=== PATIENT | female | born 1960 | race African-American/Black ===

== ENCOUNTER 2018-07-05 15:47 | Emergency (ER) | payer SELFPAY ==
[~2018-07-05] VITALS: Ht 157.5 cm; Wt 65.8 kg
[2018-07-05] MEDS ORDERED: VANCOMYCIN PER PHARMACY MC ONE (16:15)
--- NOTE | 2018-07-05 16:24 | PHYS DOC ---
Past Medical History Past Medical History: COPD, CVA Past Surgical History: Hysterectomy Additional Information: 6 cigerettes reported on avg per day. Alcohol Use: None Drug Use: None Adult General Chief Complaint Chief Complaint: SHORTNESS OF BREATH HPI HPI Patient is a 57 year old female with a history of smoking, CVA with left sided weakness, who presents today complaining of cough, shortness of breath, body aches, symptoms began yesterday. Patient is also complaining of subjective fevers. She states she believes she has pneumonia though she smells of urine PCP-none Review of Systems Review of Systems Constitutional: Denies fever or chills [] Eyes: Denies change in visual acuity, redness, or eye pain [] HENT: Denies nasal congestion or sore throat [] Respiratory: Reports cough and shortness of breath [] Cardiovascular: No additional information not addressed in HPI [] GI: Denies abdominal pain, nausea, vomiting, bloody stools or diarrhea [] : Denies dysuria or hematuria [] Musculoskeletal: Denies back pain or joint pain [] Integument: Denies rash or skin lesions [] Neurologic: Denies headache, focal weakness or sensory changes [] All other systems were reviewed and found to be within normal limits, except as documented in this note. Current Medications Current Medications Current Medications Medications (Trade) Dose Ordered Sig/Razia Start Time Stop Time Status Last Admin Dose Admin Piperacillin Sod/ Tazobactam Sod 4.5 gm/Sodium Chloride 100 ml @ 200 mls/hr 1X ONCE 07/05/18 16:30 07/05/18 16:59 DC 07/05/18 16:35 200 MLS/HR Sodium Chloride 1,000 ml @ 1,500 mls/hr Q40M 07/05/18 16:11 07/05/18 17:10 DC 07/05/18 16:28 1,500 MLS/HR Vancomycin HCl (Vanco Per Pharmacy) 1 each 1X ONCE 07/05/18 16:15 07/05/18 16:16 UNV Vancomycin HCl 1.5 gm/Sodium Chloride 500 ml @ 250 mls/hr 1X ONCE 07/05/18 16:30 07/05/18 18:29 DC 07/05/18 17:33 250 MLS/HR Allergies Allergies Allergies Coded Allergies Type Severity Reaction Last Updated Verified No Known Drug Allergies 07/05/18 No Physical Exam Physical Exam Constitutional: Well developed, well nourished, no acute distress, non-toxic appearance. [] HENT: Normocephalic, atraumatic, bilateral external ears normal, oropharynx moist, no oral exudates, nose normal. [] Eyes: PERRLA, EOMI, conjunctiva normal, no discharge. [] Neck: Normal range of motion, no tenderness, supple, no stridor. [] Cardiovascular:Heart rate regular rhythm, no murmur [] Lungs & Thorax: Bilateral breath sounds clear to auscultation [] Abdomen: Bowel sounds normal, soft, no tenderness, no masses, no pulsatile masses. [] Patient smells of urine. Skin: Warm, dry, no erythema, no rash. [] Back: No tenderness, no CVA tenderness. [] Extremities: No tenderness, no cyanosis, no clubbing, no edema. Left sided paralysis noted. Neurologic: Alert and oriented X 3, normal motor function, normal sensory function, no focal deficits noted. [] Psychologic: Affect normal, judgement normal, mood normal. [] Current Patient Data Vital Signs Vital Signs Date Time Temp Pulse Resp B/P (MAP) Pulse Ox O2 Delivery O2 Flow Rate FiO2 07/05/18 15:50 100.1 86 24 135/69 (91) 99 Room Air 100.1 Lab Values Laboratory Tests Test 07/05/18 16:03 07/05/18 16:30 07/05/18 16:45 White Blood Count 8.5 x10^3/uL (4.0-11.0) Red Blood Count 4.56 x10^6/uL (3.50-5.40) Hemoglobin 12.7 g/dL (12.0-15.5) Hematocrit 39.4 % (36.0-47.0) Mean Corpuscular Volume 86 fL (79-100) Mean Corpuscular Hemoglobin 28 pg (25-35) Mean Corpuscular Hemoglobin Concent 32 g/dL (31-37) Red Cell Distribution Width 13.7 % (11.5-14.5) Platelet Count 258 x10^3/uL (140-400) Neutrophils (%) (Auto) 71 % (31-73) Lymphocytes (%) (Auto) 17 % (24-48) L Monocytes (%) (Auto) 10 % (0-9) H Eosinophils (%) (Auto) 1 % (0-3) Basophils (%) (Auto) 1 % (0-3) Neutrophils # (Auto) 6.1 x10^3uL (1.8-7.7) Lymphocytes # (Auto) 1.4 x10^3/uL (1.0-4.8) Monocytes # (Auto) 0.8 x10^3/uL (0.0-1.1) Eosinophils # (Auto) 0.0 x10^3/uL (0.0-0.7) Basophils # (Auto) 0.1 x10^3/uL (0.0-0.2) Prothrombin Time 13.5 SEC (11.7-14.0) Prothrombin Time INR 1.1 (0.8-1.1) PTT 29 SEC (24-38) Sodium Level 140 mmol/L (136-145) Potassium Level 4.1 mmol/L (3.5-5.1) Chloride Level 104 mmol/L (98-107) Carbon Dioxide Level 26 mmol/L (21-32) Anion Gap 10 (6-14) Blood Urea Nitrogen 7 mg/dL (7-20) Creatinine 0.7 mg/dL (0.6-1.0) Estimated GFR (Cockcroft-Gault) 103.6 BUN/Creatinine Ratio 10 (6-20) Glucose Level 88 mg/dL (70-99) Lactic Acid Level 1.1 mmol/L (0.4-2.0) Calcium Level 9.4 mg/dL (8.5-10.1) Total Bilirubin 0.5 mg/dL (0.2-1.0) Aspartate Amino Transferase (AST) 18 U/L (15-37) Alanine Aminotransferase (ALT) 11 U/L (14-59) L Alkaline Phosphatase 53 U/L (46-116) Creatine Kinase 63 U/L (26-192) Creatine Kinase MB (Mass) < 0.5 ng/mL (0.0-3.6) Creatine Kinase MB Relative Index % (0-4) Troponin I Quantitative < 0.017 ng/mL (0.000-0.055) Total Protein 7.6 g/dL (6.4-8.2) Albumin 3.4 g/dL (3.4-5.0) Albumin/Globulin Ratio 0.8 (1.0-1.7) L Procalcitonin < 0.10 ng/mL (0.00-0.10) Urine Collection Type Void Urine Color Yellow Urine Clarity Turbid Urine pH 7.0 Urine Specific [place] 1.020 Urine Protein 100 mg/dL (NEG-TRACE) Urine Glucose (UA) Negative mg/dL (NEG) Urine Ketones (Stick) Negative mg/dL (NEG) Urine Blood Moderate (NEG) Urine Nitrite Positive (NEG) Urine Bilirubin Negative (NEG) Urine Urobilinogen Dipstick 2.0 mg/dL (0.2 mg/dL) Urine Leukocyte Esterase Large (NEG) Urine RBC 3-5 /HPF (0-2) Urine WBC >40 /HPF (0-4) Urine Squamous Epithelial Cells Occ /LPF Urine Bacteria Many /HPF (0-FEW) Urine Mucus Slight /LPF Influenza Type A Antigen Negative (NEGATIVE) Influenza Type B Antigen Negative (NEGATIVE) Laboratory Tests 07/05/18 16:03 Laboratory Tests 07/05/18 16:03 EKG EKG Interpreted by Dr. Smart sinus rhythm heart rate 87 no STEMI[] Radiology/Procedures Radiology/Procedures []PROCEDURE: CHEST PA & LATERAL CHEST PA LATERAL History: History of stroke, cough and fever Comparison: January 30, 2012 Findings: 2 views of the chest are submitted. There is no new infiltrate, pleural fluid, pneumothorax. There is atherosclerotic calcification near aortic arch. Heart size is stable, within normal limits. Impression: 1. There is no radiographic evidence of acute cardiopulmonary disease. Electronically signed by: Nirali Chavez MD (07/05/2018 6:29 PM) [facility] DICTATED and SIGNED BY: NIRALI CHAVEZ MD DATE: 07/05/181828 Course & Med Decision Making Course & Med Decision Making Pertinent Labs and Imaging studies reviewed. (See chart for details) This is a 57-year-old female patient with history of smoking presenting today with cough, shortness of breath on exertion, subjective fevers, symptoms since yesterday. Temp 100.1 with a heart rate in the 80s. CBC with normal WBC, CMP with no acute findings, chest x-ray is negative, urine analysis is noted for UTI. Lactic is normal. Patient was given vancomycin and Zosyn on arrival to the ED because she was started on the sepsis protocol, we discussed discharge versus pain, she is verbalizing interest in being discharge. She has good follow -up with her PCP. Will be discharged with cephalexin. Follow-up with PCP in the course of next week. Discussed smoking cessation. Akila Disclaimer Akila Disclaimer This electronic medical record was generated, in whole or in part, using a voice recognition dictation system. Departure Departure Impression: Primary Impression: Urinary tract infection Additional Impressions: Fever Bronchitis Smoking addiction Disposition: HOME, SELF-CARE Condition: STABLE Referrals: ROSHNI NERI MD (PCP) follow up next week or by the end of this week Patient Instructions: Fever, Adult, [id number], Urinary Tract Infection Additional Instructions: You have urinary tract infection, take the prescribed antibiotics until completed. Take Tylenol or Motrin for pain or fever. Consider smoking cessation. Follow-up with primary care doctor in the course of next week. Scripts Benzonatate (TESSALON PERLE) 100 Mg Capsule 1 CAP PO TID, #30 CAP Prov: SHAHRZAD ZHAO APRN 07/05/18 Albuterol Sulfate (VENTOLIN HFA INHALER) 18 Gm Hfa.aer.ad 2 PUFF INH Q4HRS for FOR ASTHMA, #1 INHALER 0 Refills Prov: SHAHRZAD ZHAO APRN 07/05/18 Cephalexin (CEPHALEXIN) 500 Mg Tablet 1 TAB PO BID, #14 TAB Prov: SHAHRZAD ZHAO APRN 07/05/18 Problem Qualifiers Primary Impression: Urinary tract infection Urinary tract infection type: site unspecified Hematuria presence: without hematuria Qualified Codes: N39.0 - Urinary tract infection, site not specified Additional Impressions: Fever Fever type: unspecified Qualified Codes: R50.9 - Fever, unspecified SHAHRZAD ZHAO APRN Jul 05, 2018 16:24
[2018-07-05 16:27] LABS: BASO # 0.1 x10^3/uL (0.0-0.2); BASO % 1 % (0-3); EOS % 1 % (0-3); HEMATOCRIT 39.4 % (36.0-47.0); HEMOGLOBIN 12.7 g/dL (12.0-15.5); LYMPH # 1.4 x10^3/uL (1.0-4.8); LYMPH % 17 % (24-48); MEAN CORPUSCULAR HEMOGLOBIN 28 pg (25-35); MEAN CORPUSCULAR HGB CONC 32 g/dL (31-37); MEAN CORPUSCULAR VOLUME 86 fL (79-100); MONO # 0.8 x10^3/uL (0.0-1.1); MONO % 10 % (0-9); NEUT # 6.1 x10^3uL (1.8-7.7); NEUT % 71 % (31-73); PLATELET COUNT 258 x10^3/uL (140-400); RED BLOOD COUNT 4.56 x10^6/uL (3.50-5.40); RED CELL DISTRIBUTION WIDTH 13.7 % (11.5-14.5); WHITE BLOOD COUNT 8.5 x10^3/uL (4.0-11.0)
[2018-07-05] MEDS: IV NORMAL SALINE 1000ML BAG 1,000 ML IV SCH (16:28)
[2018-07-05] MEDS: PIPERACILLIN/TAZOBACTAM 4.5 GM in IV NORMAL SALINE 100ML 100 ML IV ONE (16:35)
[2018-07-05 16:37] LABS: PROTHROMBIN TIME PATIENT 13.5 SEC (11.7-14.0)
[2018-07-05 16:51] LABS: CALCIUM 9.4 mg/dL (8.5-10.1); CREATININE 0.7 mg/dL (0.6-1.0); GFR 103.6; POTASSIUM 4.1 mmol/L (3.5-5.1)
[2018-07-05 16:54] LABS: BILIRUBIN,URINE NEGATIVE (NEG); CLARITY,URINE TURBID; COLOR,URINE YELLOW; NITRITE,URINE POSITIVE (NEG); PROTEIN,URINE 100 mg/dL (NEG-TRACE)
[2018-07-05 17:01] LABS: BACTERIA,URINE MANY /HPF (0-FEW); SQUAMOUS EPITHELIAL CELL,UR OCC /LPF; WBC,URINE >40 /HPF (0-4)
[2018-07-05 17:02] LABS: ALBUMIN 3.4 g/dL (3.4-5.0); ALBUMIN/GLOBULIN RATIO 0.8 (1.0-1.7); TOTAL BILIRUBIN 0.5 mg/dL (0.2-1.0); TOTAL PROTEIN 7.6 g/dL (6.4-8.2)
[2018-07-05 17:06] LABS: CREATINE KINASE 63 U/L (26-192)
[2018-07-05 17:18] LABS: INFLUENZA A PATIENT NEGATIVE (NEGATIVE); INFLUENZA B PATIENT NEGATIVE (NEGATIVE)
[2018-07-05] MEDS: VANCOMYCIN 1.5 GM in IV NORMAL SALINE 500ML BAG 500 ML IV ONE (17:33)
--- NOTE | 2018-07-05 18:32 | RAD ---
CHEST PA LATERAL History: History of stroke, cough and fever Comparison: January 30, 2012 Findings: 2 views of the chest are submitted. There is no new infiltrate, pleural fluid, pneumothorax. There is atherosclerotic calcification near aortic arch. Heart size is stable, within normal limits. Impression: 1. There is no radiographic evidence of acute cardiopulmonary disease. Electronically signed by: Gerson Arizmendi MD (07/05/2018 6:29 PM) [facility]
[2018-07-05] MEDS ORDERED: BENZ100C PO (18:44)
[2018-07-05] MEDS ORDERED: CEPH500T PO (18:44)
[2018-07-05] MEDS ORDERED: VENTOLIN HFA18 GM INH (18:44)
[2018-07-05 18:58] VITALS: BP 119/72
--- NOTE | 2018-07-06 06:05 | EKG ---
[facility] [address] [place] [address] Test Date: 2018-07-05 Test Time: 16:01:21 Pat Name: ALEJANDRA SANDHU Department: Room: Gender: F Character Artist: : 1960 Requested By: SHAHRZAD ZHAO Order Number: [id number] Reading MD: Rafa Tracy MD Measurements Intervals [place] Rate: 87 P: 90 PA: 158 QRS: 62 QRSD: 64 T: 64 QT: 326 QTc: 393 Interpretive Statements SINUS RHYTHM Electronically Signed On 07-08-2018 16:13:47 CDT by Rafa Tracy MD
== END 2018-07-05 19:50 | disposition home or self-care (01) ==
LOC: ER 15:47
DX: J44.9 Chronic obstructive pulmonary disease, unspecified (principal); N39.0 Urinary tract infection, site not specified; F17.210 Nicotine dependence, cigarettes, uncomplicated; M79.18 Myalgia, other site; R50.9 Fever, unspecified; Z86.73 Personal history of transient ischemic attack (TIA), and cerebral infarction without residual deficits; G83.9 Paralytic syndrome, unspecified
CPT/HCPCS: 36415; 71046; 80053; 81001; 82553; 83605; 84145; 84484; 85025; 85610; 85730; 87040; 87086; 87804; 93005; 96365; 96366; 96367; 99284; J2543; J3370; J7030; J7040; 87186

== ENCOUNTER 2021-01-06 01:03 | Inpatient (IN) | payer SELFPAY ==
[~2021-01-06] VITALS: Ht 157.5 cm; Wt 46.7 kg
[~2021-01-06 01:03] MED LIST: BENZ100C PO; CEPH500T PO; VENTOLIN HFA18 GM INH
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
[2021-01-06] MEDS ORDERED: KETOROLAC 60 MG/2 ML VIAL. IM ONE (01:45)
[2021-01-06 01:59] LABS: BASO # 0.1 x10^3/uL (0.0-0.2); BASO % 1 % (0-3); EOS # 0.3 x10^3/uL (0.0-0.7); EOS % 5 % (0-3); HEMATOCRIT 36.5 % (36.0-47.0); LYMPH # 2.4 x10^3/uL (1.0-4.8); LYMPH % 36 % (24-48); MEAN CORPUSCULAR HEMOGLOBIN 29 pg (25-35); MEAN CORPUSCULAR HGB CONC 33 g/dL (31-37); MEAN CORPUSCULAR VOLUME 87 fL (79-100); MONO # 0.4 x10^3/uL (0.0-1.1); MONO % 6 % (0-9); NEUT # 3.4 x10^3/uL (1.8-7.7); NEUT % 52 % (31-73); PLATELET COUNT 223 x10^3/uL (140-400); RED BLOOD COUNT 4.19 x10^6/uL (3.50-5.40); WHITE BLOOD COUNT 6.6 x10^3/uL (4.0-11.0)
[2021-01-06 02:08] LABS: BILIRUBIN,URINE NEGATIVE (NEG); CLARITY,URINE CLEAR; COLOR,URINE YELLOW; NITRITE,URINE NEGATIVE (NEG); PH,URINE 6.5 (<5.0-8.0); PROTEIN,URINE NEGATIVE (NEG-TRACE)
[2021-01-06 02:10] LABS: CREATININE 0.8 mg/dL (0.6-1.0); GFR 87.9; POTASSIUM 3.5 mmol/L (3.5-5.1)
[2021-01-06 02:15] LABS: ALBUMIN 3.8 g/dL (3.4-5.0); ALBUMIN/GLOBULIN RATIO 1.2 (1.0-1.7); TOTAL BILIRUBIN 0.4 mg/dL (0.2-1.0); TOTAL PROTEIN 7.1 g/dL (6.4-8.2)
[2021-01-06 02:16] LABS: BACTERIA,URINE 0 /HPF (0-FEW)
[2021-01-06 02:21] LABS: AMPHETAMINE/METHAMPHETAMINE NEG (NEG); BARBITURATES NEG (NEG); BENZODIAZEPINES NEG (NEG); CANNABINOIDS NEG (NEG); COCAINE POS (NEG); METHADONE NEG (NEG); OPIATES NEG (NEG); PHENCYCLIDINE NEG (NEG)
[2021-01-06] MEDS ORDERED: CEPHALEXIN 250 MG CAPSULE. PO STA (06:10)
[2021-01-06] MEDS ORDERED: CEPH500T PO (06:12)
[2021-01-06] MEDS ORDERED: HALOPERIDOL LACTATE 5 MG/ML VIAL. ONE ×2 (06:24→08:35)
[2021-01-06] MEDS ORDERED: KETAMINE HCL 500 MG/10 ML VIAL. ONE (06:26)
[2021-01-06] MEDS ORDERED: KETAMINE HCL IN NACL, ISO-OSM 50 MG/5 ML SYRINGE IM ONE (06:45)
[2021-01-06] MEDS ORDERED: HALOPERIDOL LACTATE 5 MG/ML VIAL. IM ONE (08:45)
[2021-01-06] MEDS ORDERED: ACETAMINOPHEN 325 MG TABLET. PO PRN (10:45)
[2021-01-06] MEDS ORDERED: ONDANSETRON PF 4 MG/2 ML VIAL. IVP PRN (10:45)
[2021-01-06] MEDS ORDERED: CALCIUM CARBONATE 500 MG TAB.CHEW PO PRN (10:45)
[2021-01-06] MEDS ORDERED: ELECTROLYTE (NON-ICU) PROTOCOL. MC PRN (10:45)
[2021-01-06] MEDS ORDERED: CEPHALEXIN 250 MG CAPSULE. PO SCH (14:00)
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
[2021-01-06 19:00] VITALS: BP 145/84
[2021-01-06] MEDS: ZOLPIDEM 5 MG TABLET. PO PRN (19:38)
[2021-01-06] MEDS: CEPHALEXIN 250 MG CAPSULE. PO SCH (19:39)
[2021-01-06] MEDS: SENNOSIDES/DOCUSATE 8.6/50MG TABLET. PO SCH (19:39)
[2021-01-06] MEDS: ENOXAPARIN 40 MG/0.4 ML SYRINGE. SQ SCH (19:40)
[2021-01-06 22:54] VITALS: BP 127/66
--- NOTE | 2021-01-07 00:47 | NUR ---
Had difficulty getting info from pt. Pt did wake up when brought to floor but then went back to sleep. Most info gathered from report/chart.
[2021-01-07 03:00] VITALS: BP 145/82
[2021-01-07] MEDS: CEPHALEXIN 250 MG CAPSULE. PO SCH (09:48)
[2021-01-07] MEDS: SENNOSIDES/DOCUSATE 8.6/50MG TABLET. PO SCH ×2 (09:48→20:27)
--- NOTE | 2021-01-07 10:51 | NUR ---
SW following. Discussed with RN, pt from home alone, room air, regular diet, 1:1, Rapid COVID-19 negative. PAT saw pt in ER, SW awaiting update. SW will continue to follow.
[2021-01-07 11:00] VITALS: BP 142/79
[2021-01-07] MEDS: LACTOBACILLUS RHAMNOSUS GG 1 CAPSULE. PO SCH ×2 (13:02→20:27)
--- NOTE | 2021-01-07 13:47 | PDOC ---
[employer] PROGRESS NOTE Date of Service DOS: DATE: 01/07/21 TIME: 13:45 Chief Complaint Chief Complaint Manic behavior, agitation, substance abuse, history of COPD, UTI History of Present Illness History of Present Illness 01/07/2021 Patient seen and examined She is pleasantly confused Mumbling Has one-to-one observer Discussed with RN Chart reviewed Vitals/I&O Vitals/I&O: Vital Signs Date Time Temp Pulse Resp B/P (MAP) Pulse Ox O2 Delivery O2 Flow Rate FiO2 01/07/21 11:00 61 18 142/79 (100) 98 Room Air I & O 01/06/21 01/06/21 01/07/21 15:00 23:00 07:00 Intake Total 120 ml 240 ml Balance 120 ml 240 ml Physical Exam General: Other (Pleasantly confused mumbling various words) Heart: Regular rate Lungs: Clear Abdomen: Normal bowel sounds Extremities: No clubbing Skin: No rashes Assessment and Plan Assessmemt and Plan Problems Medical Problems: (1) Hallucinations Status: Acute (2) Jennifer Status: Acute (3) Urinary tract infection Status: Acute Manic behavior, agitation, substance abuse, history of COPD, UTI Plan As needed antipsychotics One-to-one observation PET team evaluation Home meds DVT prophylaxis Full code Continue antibiotics for UTI Encourage p.o. intake Comment Review of Relevant I have reviewed the following items rosa (where applicable) has been applied. Medications: Current Medications Medications (Trade) Dose Ordered Sig/Razia Route PRN Reason Start Time Stop Time Status Last Admin Dose Admin Senna/Docusate Sodium (Senna Plus) 1 tab BID PO 01/06/21 21:00 01/07/21 09:48 Enoxaparin Sodium (Lovenox 40mg Syringe) 40 mg Q24H SQ 01/06/21 21:00 01/06/21 19:40 Cephalexin HCl (Keflex) 500 mg TID PO 01/06/21 19:00 01/07/21 09:48 Lorazepam (Ativan) 4 mg PRN Q6HRS PRN PO ANXIETY / AGITATION 01/07/21 06:00 01/07/21 13:03 Lactobacillus Rhamnosus (Culturelle) 1 cap BID PO 01/07/21 13:00 01/07/21 13:02 Justifications for Admission Other Justification KAUR MORAN K III DO Jan 07, 2021 13:46
[2021-01-07 15:00] VITALS: BP 140/70
--- NOTE | 2021-01-07 15:00 | NUR ---
1:1 dc'd. pt has been appropriate and cooperative with care this shift.
[2021-01-07] MEDS: HALOPERIDOL LACTATE 5 MG/ML VIAL. IVP PRN (16:51)
[2021-01-07 19:00] VITALS: BP 180/83
[2021-01-07] MEDS: ZOLPIDEM 5 MG TABLET. PO PRN (20:27)
[2021-01-07] MEDS: ENOXAPARIN 40 MG/0.4 ML SYRINGE. SQ SCH (20:28)
[2021-01-07 23:00] VITALS: BP 147/74
[2021-01-08] VITALS (7 sets, daily range): BP systolic 129–182; BP diastolic 55–94
[2021-01-08] MEDS: HALOPERIDOL LACTATE 5 MG/ML VIAL. IVP PRN ×3 (02:06→15:31)
--- NOTE | 2021-01-08 02:08 | NUR ---
Pt confused, restless, taking off gown. Periods of incontinence. Changed Pulled out IV @ start of shift. PRNs for agitation administered as ordered.
[2021-01-08] MEDS: SENNOSIDES/DOCUSATE 8.6/50MG TABLET. PO SCH ×2 (07:43→19:37)
[2021-01-08] MEDS: LACTOBACILLUS RHAMNOSUS GG 1 CAPSULE. PO SCH ×2 (07:43→19:37)
--- NOTE | 2021-01-08 08:47 | PDOC ---
[employer] PROGRESS NOTE Date of Service DOS: DATE: 01/08/21 TIME: 08:46 Chief Complaint Chief Complaint Manic behavior, agitation, substance abuse, history of COPD, UTI History of Present Illness History of Present Illness 01/08/2021 Patient seen and examined She is still pleasantly confused Has mitts on for her safety Discussed with RN Chart reviewed 01/07/2021 Patient seen and examined She is pleasantly confused Mumbling Has one-to-one observer Discussed with RN Chart reviewed Vitals/I&O Vitals/I&O: Vital Signs Date Time Temp Pulse Resp B/P (MAP) Pulse Ox O2 Delivery O2 Flow Rate FiO2 01/08/21 07:00 97.7 55 18 182/94 (123) 99 Room Air 97.7 01/07/21 08:00 2.0 I & O 01/07/21 01/07/21 01/08/21 15:00 23:00 07:00 Intake Total 300 ml 200 ml 200 ml Balance 300 ml 200 ml 200 ml Physical Exam General: Other Heart: Regular rate Lungs: Clear Abdomen: Normal bowel sounds Extremities: No clubbing Skin: No rashes Assessment and Plan Assessmemt and Plan Problems Medical Problems: (1) Hallucinations Status: Acute (2) Jennifer Status: Acute (3) Urinary tract infection Status: Acute Manic behavior, agitation, substance abuse, history of COPD, UTI Plan As needed antipsychotics Mitts for patient safety PAT team evaluation Home meds DVT prophylaxis Full code Continue antibiotics for UTI Encourage p.o. intake Hope to discharge once her acute psychosis resolves Comment Review of Relevant I have reviewed the following items rosa (where applicable) has been applied. Medications: Current Medications Medications (Trade) Dose Ordered Sig/Razia Route PRN Reason Start Time Stop Time Status Last Admin Dose Admin Lactobacillus Rhamnosus (Culturelle) 1 cap BID PO 01/07/21 13:00 01/08/21 07:43 Levofloxacin/ Dextrose 50 ml @ 50 mls/hr Q24H IV 01/07/21 14:00 01/07/21 16:40 Lorazepam (Ativan Inj) 2 mg PRN Q6HRS PRN IVP ANXIETY / AGITATION 01/07/21 16:00 01/08/21 07:05 Haloperidol Lactate (Haldol Inj) 5 mg PRN Q6HRS PRN IVP AGITATION, 2nd CHOICE 01/07/21 16:00 01/08/21 07:43 Justifications for Admission Other Justification KAUR MORAN III DO Jan 08, 2021 08:47
[2021-01-08] MEDS: oxyCODONE IR 5 MG TABLET PO PRN (09:46)
--- NOTE | 2021-01-08 11:26 | NUR ---
SW following. Discussed with RNDivine (PAT team) met with pt, and will schedule a [facility] assessment. Per Tara (PAT), they are very familiar with this patient. Pt follows with Kyra VALENCIA. SW will continue to follow.
[2021-01-08] MEDS: ZOLPIDEM 5 MG TABLET. PO PRN (19:37)
[2021-01-08] MEDS: ENOXAPARIN 40 MG/0.4 ML SYRINGE. SQ SCH (20:47)
[2021-01-09] MEDS: HALOPERIDOL LACTATE 5 MG/ML VIAL. IVP PRN ×4 (00:19→22:53)
[2021-01-09 03:00] VITALS: BP 130/50
--- NOTE | 2021-01-09 03:02 | NUR ---
Pt with confusion. Remains impulsive and restless, taking off gown. PRN meds for agitation given as ordered. Obtained baseline EKG, pt is on haldol prn.
--- NOTE | 2021-01-09 06:27 | EKG ---
[facility] [address] [place] [address] Test Date: 2021-01-09 Test Time: 00:08:21 Pat Name: JESU SANDHU Department: Room: 584 1 Gender: F Account Consultant: LYUDMILA : 1960 Requested By: NOAM LEDBETTER Order Number: [id number] Reading MD: Measurements Intervals [place] Rate: 49 P: 69 OK: 156 QRS: 66 QRSD: 76 T: 84 QT: 440 QTc: 400 Interpretive Statements SINUS BRADYCARDIA QRS(T) CONTOUR ABNORMALITY CONSISTENT WITH ANTEROSEPTAL INFARCT PROBABLY OLD ABNORMAL ECG RI6.02 Compared to ECG 07/05/2018 16:01:21 Myocardial infarct finding now present Sinus rhythm no longer present
[2021-01-09 07:00] VITALS: BP 144/88
[2021-01-09] MEDS: LACTOBACILLUS RHAMNOSUS GG 1 CAPSULE. PO SCH ×2 (09:08→21:15)
[2021-01-09] MEDS: SENNOSIDES/DOCUSATE 8.6/50MG TABLET. PO SCH ×2 (09:08→21:15)
[2021-01-09 11:30] VITALS: BP 143/63
--- NOTE | 2021-01-09 11:50 | NUR ---
SW following. Discussed with RNSteve (ROSE) coming back to re-eval pt. Med Assist following for self pay status. SW will continue to follow.
--- NOTE | 2021-01-09 13:30 | PDOC ---
[employer] PROGRESS NOTE Date of Service DOS: DATE: 01/09/21 TIME: 13:14 Chief Complaint Chief Complaint Manic behavior Agitation Substance abuse COPD UTI History of Present Illness History of Present Illness 01/09/2021: Pt was seen and examined. Was initially resting and comfortably. Upon waking, became slightly aggressive and agitated while reaching for her phone. Upon receiving her cell phone, pt does not use the phone and fiddles with buttons. Relaxes after Ativan. Discussed with RN and PAT. Chart reviewed. 01/08/2021 Patient seen and examined She is still pleasantly confused Has mitts on for her safety Discussed with RN Chart reviewed 01/07/2021 Patient seen and examined She is pleasantly confused Mumbling Has one-to-one observer Discussed with RN Chart reviewed Vitals/I&O Vitals/I&O: Vital Signs Date Time Temp Pulse Resp B/P (MAP) Pulse Ox O2 Delivery O2 Flow Rate FiO2 01/09/21 11:30 98.0 75 18 143/63 (89) 95 Room Air 98.0 01/08/21 20:00 2.0 I & O 01/08/21 01/08/21 01/09/21 15:00 23:00 07:00 Intake Total 50 ml 0 ml 320 ml Balance 50 ml 0 ml 320 ml Physical Exam General: Alert, mild distress, Other (Fiddles with phone without purpose. Does not answer questions. ) Heart: Regular rate Lungs: Clear Abdomen: Normal bowel sounds, Soft, No tenderness, No masses Extremities: No clubbing Skin: No rashes Review of Systems Review of Systems: Auditory hallucinations Psychotic v. manic state Assessment and Plan Assessmemt and Plan Problems Medical Problems: (1) Hallucinations Status: Acute (2) Jennifer Status: Acute (3) Urinary tract infection Status: Acute Manic behavior Agitation Substance abuse COPD UTI Plan: Haldol, ativan PRN Monitor psychiatric status Appreciate further PAT team evaluation, consider atypical antipsychotics Home meds DVT prophylaxis Full code Trend labs Levaquin for UTI Trazodone Ambien for sleep Encourage PO intake Hope to discharge once her acute psychosis resolves Comment Review of Relevant I have reviewed the following items rosa (where applicable) has been applied. Medications: Current Medications Medications (Trade) Dose Ordered Sig/Razia Route PRN Reason Start Time Stop Time Status Last Admin Dose Admin Lorazepam (Ativan Inj) 2 mg PRN Q4HRS PRN IVP AGITATION, 2ND CHOICE 01/08/21 20:15 01/09/21 11:49 Justifications for Admission Other Justification KAUR MORAN III DO Jan 09, 2021 13:30
[2021-01-09] MEDS: QUEtiapine 25 MG TABLET. PO SCH (13:54)
[2021-01-09 15:00] VITALS: BP_SYST 76
[2021-01-09] MEDS: ARIPiprazole 5 MG TABLET PO SCH (15:07)
[2021-01-09 19:00] VITALS: BP 132/64
[2021-01-09] MEDS: ENOXAPARIN 40 MG/0.4 ML SYRINGE. SQ SCH ×2 (21:00→21:15)
[2021-01-09] MEDS: traZODone 100 MG TABLET. PO SCH (21:15)
[2021-01-09 23:28] VITALS: BP 126/68
[2021-01-10 03:13] VITALS: BP 112/58
[2021-01-10] MEDS: SENNOSIDES/DOCUSATE 8.6/50MG TABLET. PO SCH ×2 (06:46→19:57)
[2021-01-10] MEDS: ARIPiprazole 5 MG TABLET PO SCH (06:46)
[2021-01-10] MEDS: QUEtiapine 25 MG TABLET. PO SCH (06:46)
[2021-01-10] MEDS: LACTOBACILLUS RHAMNOSUS GG 1 CAPSULE. PO SCH ×2 (06:46→19:57)
[2021-01-10] MEDS: HALOPERIDOL LACTATE 5 MG/ML VIAL. IVP PRN ×3 (06:47→19:57)
[2021-01-10 07:00] VITALS: BP 136/65
[2021-01-10 11:00] VITALS: BP 116/58
--- NOTE | 2021-01-10 13:07 | NUR ---
SW following. Discussed with RN, pt fell this morning, home meds have started. Med Assist following for self pay status. SW will continue to follow.
--- NOTE | 2021-01-10 14:14 | PDOC ---
[employer] PROGRESS NOTE Date of Service DOS: DATE: 01/10/21 TIME: 14:04 Chief Complaint Chief Complaint Psychosis Manic behavior Agitation Substance abuse COPD UTI History of Present Illness History of Present Illness 01/10/2021: Chart Reviewed. Pt was seen and examined. Pt resting comfortably in NAD and no abnormal movements. Discussed with RN. No obvious injuries from previous fall. 01/09/2021: Pt was seen and examined. Was initially resting and comfortably. Upon waking, became slightly aggressive and agitated while reaching for her phone. Upon receiving her cell phone, pt does not use the phone and fiddles with buttons. Relaxes after Ativan. Discussed with RN and PAT. Chart reviewed. 01/08/2021 Patient seen and examined She is still pleasantly confused Has mitts on for her safety Discussed with RN Chart reviewed 01/07/2021 Patient seen and examined She is pleasantly confused Mumbling Has one-to-one observer Discussed with RN Chart reviewed Vitals/I&O Vitals/I&O: Vital Signs Date Time Temp Pulse Resp B/P (MAP) Pulse Ox O2 Delivery O2 Flow Rate FiO2 01/10/21 11:00 98.1 69 16 116/58 (77) 100 Room Air 98.1 01/10/21 07:00 2.0 I & O 01/09/21 01/09/21 01/10/21 15:00 23:00 07:00 Intake Total 200 ml 120 ml 120 ml Balance 200 ml 120 ml 120 ml Physical Exam Physical Exam: Pt sleeping comfortably General: No acute distress, Other Heart: Regular rate Abdomen: Soft, No tenderness, No hepatosplenomegaly, No masses Extremities: No clubbing, No cyanosis, No edema Skin: No rashes Review of Systems Review of Systems: Resolving Psychosis Fatigue Assessment and Plan Assessmemt and Plan Problems Medical Problems: (1) Hallucinations Status: Acute (2) Jennifer Status: Acute (3) Urinary tract infection Status: Acute Psychosis Manic behavior Agitation Substance abuse COPD UTI Plan: Abilify and Seroquel Haldol, ativan PRN Monitor psychiatric status Appreciate further input from PAT team and SS Home meds DVT prophylaxis Trend labs Home meds Levaquin for UTI Trazodone, Ambien for sleep Encourage PO intake Full code Hope to discharge once her acute psychosis resolves. Substance-induced psychosis v. underlying Schizoaffective (undertreated 2/2 medication non compliance) Dispo pending sub specialist input Comment Review of Relevant I have reviewed the following items rosa (where applicable) has been applied. Medications: Current Medications Medications (Trade) Dose Ordered Sig/Razia Route PRN Reason Start Time Stop Time Status Last Admin Dose Admin Trazodone HCl (Desyrel) 100 mg QHS PO 01/09/21 21:00 01/09/21 21:15 Justifications for Admission Other Justification KAUR MORAN III DO Jan 10, 2021 14:14
[2021-01-10 15:00] VITALS: BP 105/57
--- NOTE | 2021-01-10 15:00 | NUR ---
Nurse's note: This nurse was notified by the TAIL EDGER that the patient was on the floor at 0920. When this nurse came to assess her, she was lying down in bed, awake, alert, oriented x2. She complained of pain on her left arm. On examination, there was no bruising, swelling or tenderness noted. The patient told this nurse that she wanted to get out of bed after breakfast to check on her granddaughter. VSS were stable, Dr. Sinclair notified of the event during his rounds at 1000. Attempted to call family, Danae (sister) but was unavailable. Fall risk reassessment done, yellow sticker was placed on the door. Another pad/alarm was placed.This nurse gave food and drinks to redirect her, PRN Haldol also given. We'll continue to monitor.
[2021-01-10 19:00] VITALS: BP 129/68
[2021-01-10] MEDS: ZOLPIDEM 5 MG TABLET. PO PRN (19:57)
[2021-01-10] MEDS: traZODone 100 MG TABLET. PO SCH (19:57)
[2021-01-10] MEDS: ENOXAPARIN 40 MG/0.4 ML SYRINGE. SQ SCH (19:57)
[2021-01-10 22:39] VITALS: BP 110/65
[2021-01-11] MEDS: HALOPERIDOL LACTATE 5 MG/ML VIAL. IVP PRN ×2 (00:32→21:14)
[2021-01-11 02:28] VITALS: BP 111/60
[2021-01-11 07:00] VITALS: BP 110/64
[2021-01-11] MEDS: ARIPiprazole 5 MG TABLET PO SCH (08:09)
[2021-01-11] MEDS: CEPHALEXIN 250 MG CAPSULE. PO SCH ×3 (08:09→21:14)
[2021-01-11] MEDS: LACTOBACILLUS RHAMNOSUS GG 1 CAPSULE. PO SCH ×2 (08:09→21:13)
[2021-01-11] MEDS: QUEtiapine 25 MG TABLET. PO SCH (08:09)
[2021-01-11] MEDS: SENNOSIDES/DOCUSATE 8.6/50MG TABLET. PO SCH ×2 (08:09→21:13)
[2021-01-11 11:00] VITALS: BP 117/55
--- NOTE | 2021-01-11 11:22 | PDOC ---
[facility] PROGRESS NOTE Date of Service DOS: DATE: 01/11/21 TIME: 11:17 Chief Complaint Chief Complaint Psychosis Manic behavior Agitation Substance abuse COPD UTI History of Present Illness History of Present Illness 01/11/21: Discussed with RN. Chart Reviewed. Pt was seen and examined. Pt with improved mood. NAD and appears happy to talk. Pt is appreciative of the care she has received. She has no requests. Pt has knowledge about her UTI and understands her care. 01/10/2021: Chart Reviewed. Pt was seen and examined. Pt resting comfortably in NAD and no abnormal movements. Discussed with RN. No obvious injuries from previous fall. 01/09/2021: Pt was seen and examined. Was initially resting and comfortably. Upon waking, became slightly aggressive and agitated while reaching for her phone. Upon receiving her cell phone, pt does not use the phone and fiddles with buttons. Relaxes after Ativan. Discussed with RN and PAT. Chart reviewed. 01/08/2021 Patient seen and examined She is still pleasantly confused Has mitts on for her safety Discussed with RN Chart reviewed 01/07/2021 Patient seen and examined She is pleasantly confused Mumbling Has one-to-one observer Discussed with RN Chart reviewed Vitals/I&O Vitals/I&O: Vital Signs Date Time Temp Pulse Resp B/P (MAP) Pulse Ox O2 Delivery O2 Flow Rate FiO2 01/11/21 07:00 97.7 68 16 110/64 (79) 96 Room Air 97.7 01/10/21 07:00 2.0 I & O 01/10/21 01/10/21 01/11/21 15:00 23:00 07:00 Intake Total 1200 ml 1200 ml 240 ml Output Total 0 ml Balance 1200 ml 1200 ml 240 ml Physical Exam Physical Exam: Pt sleeping comfortably. Looks pleasant upon waking. Snack sitting at bedside. General: Alert, Oriented X3, Cooperative, No acute distress, Other Heart: Regular rate Lungs: Clear Abdomen: Soft, No tenderness, No hepatosplenomegaly, No masses Extremities: No clubbing, No cyanosis, No edema Skin: No rashes Review of Systems Review of Systems: Fatigue AMS (resolved) Assessment and Plan Assessmemt and Plan Problems Medical Problems: (1) Hallucinations Status: Acute (2) Jennifer Status: Acute (3) Urinary tract infection Status: Acute Psychosis Manic behavior Agitation Substance abuse COPD UTI Plan: Abilify and Seroquel Haldol, ativan PRN Trazodone, Ambien for sleep Keflex for UTI Home meds DVT prophylaxis Trend labs Home meds Encourage PO intake Monitor psychiatric status Appreciate further input from PAT team and SS Full code Hope to discharge once her acute psychosis resolves and placement has been obtained. Substance-induced psychosis v. underlying Schizoaffective (undertreated 2/2 medication non compliance) Dispo pending sub specialist input Comment Review of Relevant I have reviewed the following items rosa (where applicable) has been applied. Medications: Current Medications Medications (Trade) Dose Ordered Sig/Razia Route PRN Reason Start Time Stop Time Status Last Admin Dose Admin Cephalexin HCl (Keflex) 500 mg TID PO 01/11/21 09:00 01/11/21 08:09 Justifications for Admission Other Justification KAUR MORAN III DO Jan 11, 2021 11:22
[2021-01-11 15:00] VITALS: BP 122/62
[2021-01-11 19:40] VITALS: BP 112/53
[2021-01-11] MEDS: ZOLPIDEM 5 MG TABLET. PO PRN (21:13)
[2021-01-11] MEDS: ENOXAPARIN 40 MG/0.4 ML SYRINGE. SQ SCH (21:14)
[2021-01-11] MEDS: traZODone 100 MG TABLET. PO SCH (21:14)
[2021-01-11 23:10] VITALS: BP 100/50
[2021-01-12] MEDS: HALOPERIDOL LACTATE 5 MG/ML VIAL. IVP PRN (02:02)
[2021-01-12 02:26] VITALS: BP 108/51
[2021-01-12 07:00] VITALS: BP 115/53
[2021-01-12] MEDS: SENNOSIDES/DOCUSATE 8.6/50MG TABLET. PO SCH ×2 (10:11→19:57)
[2021-01-12] MEDS: ARIPiprazole 5 MG TABLET PO SCH (10:11)
[2021-01-12] MEDS: CEPHALEXIN 250 MG CAPSULE. PO SCH ×3 (10:11→19:57)
[2021-01-12] MEDS: LACTOBACILLUS RHAMNOSUS GG 1 CAPSULE. PO SCH ×2 (10:11→19:57)
[2021-01-12] MEDS: QUEtiapine 25 MG TABLET. PO SCH (10:12)
[2021-01-12] MEDS: oxyCODONE IR 5 MG TABLET PO PRN ×2 (10:12→19:56)
[2021-01-12 11:00] VITALS: BP 104/51
--- NOTE | 2021-01-12 13:38 | PDOC ---
[facility] PROGRESS NOTE Date of Service DOS: DATE: 01/12/21 TIME: 13:37 Chief Complaint Chief Complaint Psychosis Manic behavior Agitation Substance abuse COPD UTI History of Present Illness History of Present Illness 01/12/2021 Patient seen and examined Chart reviewed Discussed with RN Patient is resting with no apparent distress 01/11/21: Discussed with RN. Chart Reviewed. Pt was seen and examined. Pt with improved mood. NAD and appears happy to talk. Pt is appreciative of the care she has received. She has no requests. Pt has knowledge about her UTI and understands her care. 01/10/2021: Chart Reviewed. Pt was seen and examined. Pt resting comfortably in NAD and no abnormal movements. Discussed with RN. No obvious injuries from previous fall. 01/09/2021: Pt was seen and examined. Was initially resting and comfortably. Upon waking, became slightly aggressive and agitated while reaching for her phone. Upon receiving her cell phone, pt does not use the phone and fiddles with buttons. Relaxes after Ativan. Discussed with RN and PAT. Chart reviewed. 01/08/2021 Patient seen and examined She is still pleasantly confused Has mitts on for her safety Discussed with RN Chart reviewed 01/07/2021 Patient seen and examined She is pleasantly confused Mumbling Has one-to-one observer Discussed with RN Chart reviewed Vitals/I&O Vitals/I&O: Vital Signs Date Time Temp Pulse Resp B/P (MAP) Pulse Ox O2 Delivery O2 Flow Rate FiO2 01/12/21 11:00 97.9 65 13 104/51 (68) 96 Room Air 97.9 I & O 01/11/21 01/11/21 01/12/21 15:00 23:00 07:00 Intake Total 400 ml 560 ml 600 ml Balance 400 ml 560 ml 600 ml Physical Exam Physical Exam: Pt sleeping comfortably. Looks pleasant upon waking. Snack sitting at bedside. General: No acute distress, Other Heart: Regular rate Lungs: Clear Abdomen: Soft, No tenderness, No hepatosplenomegaly, No masses Extremities: No clubbing, No cyanosis, No edema Skin: No rashes Assessment and Plan Assessmemt and Plan Problems Medical Problems: (1) Hallucinations Status: Acute (2) Jennifer Status: Acute (3) Urinary tract infection Status: Acute Psychosis Manic behavior Agitation Substance abuse COPD UTI Plan: Continue supportive care until she can be transferred to another facility? Abilify and Seroquel Haldol, ativan PRN Trazodone, Ambien for sleep Keflex for UTI Home meds DVT prophylaxis Trend labs Home meds Encourage PO intake Monitor psychiatric status Appreciate further input from PAT team and SS Comment Review of Relevant I have reviewed the following items rosa (where applicable) has been applied. Justifications for Admission Other Justification KAUR MORAN III DO Jan 12, 2021 13:38
[2021-01-12 15:00] VITALS: BP 114/56
[2021-01-12 19:00] VITALS: BP 121/68
[2021-01-12] MEDS: traZODone 100 MG TABLET. PO SCH (19:56)
[2021-01-12] MEDS: ENOXAPARIN 40 MG/0.4 ML SYRINGE. SQ SCH (19:56)
[2021-01-12] MEDS: ZOLPIDEM 5 MG TABLET. PO PRN (19:57)
[2021-01-12 22:43] VITALS: BP 122/60
[2021-01-13] MEDS: HALOPERIDOL LACTATE 5 MG/ML VIAL. IVP PRN ×2 (01:18→19:10)
[2021-01-13 02:46] VITALS: BP 108/61
[2021-01-13 07:15] VITALS: BP 110/68
[2021-01-13] MEDS: ARIPiprazole 5 MG TABLET PO SCH (07:58)
[2021-01-13] MEDS: SENNOSIDES/DOCUSATE 8.6/50MG TABLET. PO SCH ×2 (07:58→19:33)
[2021-01-13] MEDS: QUEtiapine 25 MG TABLET. PO SCH (07:58)
[2021-01-13] MEDS: LACTOBACILLUS RHAMNOSUS GG 1 CAPSULE. PO SCH ×2 (07:58→19:33)
[2021-01-13] MEDS: CEPHALEXIN 250 MG CAPSULE. PO SCH ×3 (07:59→19:34)
[2021-01-13 10:58] VITALS: BP 116/71
--- NOTE | 2021-01-13 11:07 | NUR ---
SW following. Discussed with RN, PAT team returning to assess pt. SW will continue to follow.
--- NOTE | 2021-01-13 11:38 | PDOC ---
[facility] PROGRESS NOTE Date of Service DOS: DATE: 01/13/21 TIME: 11:35 Chief Complaint Chief Complaint Psychosis - PAT team assisting with appropriate placement and discharge disposition Manic behavior - as above Agitation - as above Substance abuse - as above COPD - stable on room air UTI -treatment with Keflex History of Present Illness History of Present Illness 01/13/2021: Events overnight. PAT team to reevaluate patient today for safe discharge. Denies dysuria or nausea. May discontinue Keflex after today's dose. 01/12/2021 Patient seen and examined Chart reviewed Discussed with RN Patient is resting with no apparent distress 01/11/21: Discussed with RN. Chart Reviewed. Pt was seen and examined. Pt with improved mood. NAD and appears happy to talk. Pt is appreciative of the care she has received. She has no requests. Pt has knowledge about her UTI and understands her care. 01/10/2021: Chart Reviewed. Pt was seen and examined. Pt resting comfortably in NAD and no abnormal movements. Discussed with RN. No obvious injuries from previous fall. 01/09/2021: Pt was seen and examined. Was initially resting and comfortably. Upon waking, became slightly aggressive and agitated while reaching for her phone. Upon receiving her cell phone, pt does not use the phone and fiddles with buttons. Relaxes after Ativan. Discussed with RN and PAT. Chart reviewed. 01/08/2021 Patient seen and examined She is still pleasantly confused Has mitts on for her safety Discussed with RN Chart reviewed 01/07/2021 Patient seen and examined She is pleasantly confused Mumbling Has one-to-one observer Discussed with RN Chart reviewed Vitals/I&O Vitals/I&O: Vital Signs Date Time Temp Pulse Resp B/P (MAP) Pulse Ox O2 Delivery O2 Flow Rate FiO2 01/13/21 10:58 97.4 69 16 116/71 (86) 95 Room Air 97.4 01/12/21 19:56 2.0 I & O 01/12/21 01/12/21 01/13/21 15:00 23:00 07:00 Intake Total 300 ml Balance 300 ml Physical Exam Physical Exam: Pt sleeping comfortably. Looks pleasant upon waking. Snack sitting at bedside. General: Alert, No acute distress, Other Heart: Regular rate Lungs: Clear Abdomen: Soft, No tenderness, No hepatosplenomegaly, No masses Extremities: No clubbing, No cyanosis, No edema Skin: No rashes Assessment and Plan Assessmemt and Plan Problems Medical Problems: (1) Hallucinations Status: Acute (2) Jennifer Status: Acute (3) Urinary tract infection Status: Acute Comment Review of Relevant I have reviewed the following items rosa (where applicable) has been applied. Justifications for Admission Other Justification NÉSTOR JIMENES MD Jan 13, 2021 11:38
[2021-01-13 14:47] VITALS: BP 119/62
[2021-01-13 19:00] VITALS: BP 134/68
[2021-01-13] MEDS: traZODone 100 MG TABLET. PO SCH (19:33)
[2021-01-13] MEDS: ZOLPIDEM 5 MG TABLET. PO PRN (19:34)
[2021-01-13] MEDS: oxyCODONE IR 5 MG TABLET PO PRN (19:34)
[2021-01-13] MEDS: ENOXAPARIN 40 MG/0.4 ML SYRINGE. SQ SCH (19:34)
[2021-01-13 22:33] VITALS: BP 131/64
[2021-01-14] MEDS: HALOPERIDOL LACTATE 5 MG/ML VIAL. IVP PRN ×3 (00:14→23:19)
[2021-01-14 02:25] VITALS: BP 124/61
[2021-01-14 07:20] VITALS: BP 124/64
[2021-01-14] MEDS: LACTOBACILLUS RHAMNOSUS GG 1 CAPSULE. PO SCH ×2 (10:23→21:36)
[2021-01-14] MEDS: ARIPiprazole 5 MG TABLET PO SCH (10:24)
[2021-01-14] MEDS: SENNOSIDES/DOCUSATE 8.6/50MG TABLET. PO SCH ×2 (10:24→21:37)
[2021-01-14] MEDS: QUEtiapine 25 MG TABLET. PO SCH (10:28)
[2021-01-14 11:08] VITALS: BP 114/55
--- NOTE | 2021-01-14 13:07 | PDOC ---
[facility] PROGRESS NOTE Date of Service DOS: DATE: 01/14/21 TIME: 12:53 Chief Complaint Chief Complaint Psychosis - PAT team assisting with appropriate placement and discharge disposition Manic behavior - previously diagnosed bipolar and schizoaffective. Will add benztropine for extrapyrimidal side effects Agitation - as above COPD - stable on room air UTI -treatment with Keflex Cocaine abuse - needs outpatient treatment after inpatient consideration of psychiatric placement History of Present Illness History of Present Illness Still mumbling with some involuntary movements. Little easier to understand today says she recently moved back from [place] where she is visiting her sister. She notes she was previously patient of Dr. Bull. She is interested in mental health services and wants to stop cocaine. She try to get help reaching her food in the room currently. No pain complaints no shortness of breath no chest pain. 01/13/2021: Events overnight. PAT team to reevaluate patient today for safe discharge. Denies dysuria or nausea. May discontinue Keflex after today's dose. 01/12/2021 Patient seen and examined Chart reviewed Discussed with RN Patient is resting with no apparent distress 01/11/21: Discussed with RN. Chart Reviewed. Pt was seen and examined. Pt with improved mood. NAD and appears happy to talk. Pt is appreciative of the care she has received. She has no requests. Pt has knowledge about her UTI and understands her care. 01/10/2021: Chart Reviewed. Pt was seen and examined. Pt resting comfortably in NAD and no abnormal movements. Discussed with RN. No obvious injuries from previous fall. 01/09/2021: Pt was seen and examined. Was initially resting and comfortably. Upon waking, became slightly aggressive and agitated while reaching for her phone. Upon receiving her cell phone, pt does not use the phone and fiddles with buttons. Relaxes after Ativan. Discussed with RN and PAT. Chart reviewed. 01/08/2021 Patient seen and examined She is still pleasantly confused Has mitts on for her safety Discussed with RN Chart reviewed 01/07/2021 Patient seen and examined She is pleasantly confused Mumbling Has one-to-one observer Discussed with RN Chart reviewed Vitals/I&O Vitals/I&O: Vital Signs Date Time Temp Pulse Resp B/P (MAP) Pulse Ox O2 Delivery O2 Flow Rate FiO2 01/14/21 11:08 97.3 62 18 114/55 74 94 Room Air 97.3 I & O 01/13/21 01/13/21 01/14/21 15:00 23:00 07:00 Intake Total 360 ml 240 ml Balance 360 ml 240 ml Physical Exam Physical Exam: Pt sleeping comfortably. Looks pleasant upon waking. Snack sitting at bedside. General: Alert, No acute distress, Other Heart: Regular rate Lungs: Clear Abdomen: Soft, No tenderness, No hepatosplenomegaly, No masses Extremities: No clubbing, No cyanosis, No edema Skin: No rashes Assessment and Plan Assessmemt and Plan Problems Medical Problems: (1) Hallucinations Status: Acute (2) Jennifer Status: Acute (3) Urinary tract infection Status: Acute Comment Review of Relevant I have reviewed the following items rosa (where applicable) has been applied. Justifications for Admission Other Justification NOAM WOODS MD Jan 14, 2021 13:07
[2021-01-14] MEDS ORDERED: BENZTROPINE MESYLATE 2 MG/2 ML VIAL. IM PRN (13:15)
[2021-01-14 14:31] LABS: BASO # 0.1 x10^3/uL (0.0-0.2); BASO % 1 % (0-3); EOS # 0.6 x10^3/uL (0.0-0.7); EOS % 9 % (0-3); HEMOGLOBIN 12.4 g/dL (12.0-15.5); LYMPH # 1.9 x10^3/uL (1.0-4.8); LYMPH % 30 % (24-48); MEAN CORPUSCULAR HEMOGLOBIN 29 pg (25-35); MEAN CORPUSCULAR HGB CONC 32 g/dL (31-37); MEAN CORPUSCULAR VOLUME 91 fL (79-100); MONO # 0.5 x10^3/uL (0.0-1.1); MONO % 7 % (0-9); NEUT # 3.3 x10^3/uL (1.8-7.7); NEUT % 52 % (31-73); PLATELET COUNT 113 x10^3/uL (140-400); RED BLOOD COUNT 4.29 x10^6/uL (3.50-5.40); WHITE BLOOD COUNT 6.3 x10^3/uL (4.0-11.0)
[2021-01-14 14:49] LABS: ALBUMIN 3.1 g/dL (3.4-5.0); ALBUMIN/GLOBULIN RATIO 0.9 (1.0-1.7); CREATININE 0.7 mg/dL (0.6-1.0); GFR 102.6; POTASSIUM 4.5 mmol/L (3.5-5.1); TOTAL BILIRUBIN 0.2 mg/dL (0.2-1.0); TOTAL PROTEIN 6.5 g/dL (6.4-8.2)
[2021-01-14 14:50] VITALS: BP 116/60
[2021-01-14 19:00] VITALS: BP 154/77
[2021-01-14] MEDS: ENOXAPARIN 40 MG/0.4 ML SYRINGE. SQ SCH (21:37)
[2021-01-14] MEDS: traZODone 100 MG TABLET. PO SCH (21:37)
--- NOTE | 2021-01-14 22:21 | NUR ---
Patient transferred to room 402 from the 5th floor. Patient sleeping/drowsy but responsive to name. Patient oriented to unit, call light within reach. Will continue to monitor patient.
[2021-01-14 23:00] VITALS: BP 142/75
[2021-01-15] MEDS: ZOLPIDEM 5 MG TABLET. PO PRN
[2021-01-15 02:58] VITALS: BP 122/90
[2021-01-15] MEDS: oxyCODONE IR 5 MG TABLET PO PRN (03:08)
[2021-01-15 07:00] VITALS: BP 121/61
--- NOTE | 2021-01-15 08:33 | PDOC ---
PROGRESS NOTES Date of Service: DATE: 01/15/21 TIME: 08:33 Chief Complaint Chief Complaint Psychosis - PAT team assisting with appropriate placement and discharge disposition Manic behavior - previously diagnosed bipolar and schizoaffective. Will add benztropine for extrapyrimidal side effects Agitation - as above COPD - stable on room air UTI -treatment with Keflex Cocaine abuse - needs outpatient treatment after inpatient consideration of psychiatric placement History of Present Illness History of Present Illness Still mumbling with some involuntary movements. Little easier to understand today says she recently moved back from [place] where she is visiting her sister. She notes she was previously patient of Dr. Bull. She is interested in mental health services and wants to stop cocaine. She try to get help reaching her food in the room currently. No pain complaints no shortness of breath no chest pain. 01/15/2021: PAT team to reevaluate patient for safe discharge. Denies dysuria or nausea. WANTS TO STOP COCAINE USE 01/13/2021: Events overnight. PAT team to reevaluate patient today for safe discharge. Denies dysuria or nausea. May discontinue Keflex after today's dose. 01/12/2021 Patient seen and examined Chart reviewed Discussed with RN Patient is resting with no apparent distress 01/11/21: Discussed with RN. Chart Reviewed. Pt was seen and examined. Pt with improved mood. NAD and appears happy to talk. Pt is appreciative of the care she has received. She has no requests. Pt has knowledge about her UTI and understands her care. 01/10/2021: Chart Reviewed. Pt was seen and examined. Pt resting comfortably in NAD and no abnormal movements. Discussed with RN. No obvious injuries from previous fall. 01/09/2021: Pt was seen and examined. Was initially resting and comfortably. Upon waking, became slightly aggressive and agitated while reaching for her phone. Upon receiving her cell phone, pt does not use the phone and fiddles with buttons. Relaxes after Ativan. Discussed with RN and PAT. Chart reviewed. 01/08/2021 Patient seen and examined She is still pleasantly confused Has mitts on for her safety Discussed with RN Chart reviewed 01/07/2021 Patient seen and examined She is pleasantly confused Mumbling Has one-to-one observer Discussed with RN Chart reviewed Vitals Vitals Vital Signs Date Time Temp Pulse Resp B/P (MAP) Pulse Ox O2 Delivery O2 Flow Rate FiO2 01/15/21 07:00 98.0 71 18 121/61 (81) 96 Room Air 98.0 01/14/21 08:14 2.0 Physical Exam Physical Exam Pt sleeping comfortably. pleasant upon Snack sitting at bedside. Eating rice krispies NAD General: Alert, Cooperative, No acute distress, Other Heart: Regular rate, Normal S1, Normal S2, No murmurs Lungs: Clear Abdomen: Normal bowel sounds, Soft, No tenderness, No hepatosplenomegaly, No masses Extremities: No clubbing, No cyanosis, No edema Skin: No rashes Labs LABS Laboratory Tests Test 01/14/21 13:45 White Blood Count 6.3 x10^3/uL (4.0-11.0) Red Blood Count 4.29 x10^6/uL (3.50-5.40) Hemoglobin 12.4 g/dL (12.0-15.5) Hematocrit 39.0 % (36.0-47.0) Mean Corpuscular Volume 91 fL (79-100) Mean Corpuscular Hemoglobin 29 pg (25-35) Mean Corpuscular Hemoglobin Concent 32 g/dL (31-37) Red Cell Distribution Width 14.0 % (11.5-14.5) Platelet Count 113 x10^3/uL (140-400) Neutrophils (%) (Auto) 52 % (31-73) Lymphocytes (%) (Auto) 30 % (24-48) Monocytes (%) (Auto) 7 % (0-9) Eosinophils (%) (Auto) 9 % (0-3) Basophils (%) (Auto) 1 % (0-3) Neutrophils # (Auto) 3.3 x10^3/uL (1.8-7.7) Lymphocytes # (Auto) 1.9 x10^3/uL (1.0-4.8) Monocytes # (Auto) 0.5 x10^3/uL (0.0-1.1) Eosinophils # (Auto) 0.6 x10^3/uL (0.0-0.7) Basophils # (Auto) 0.1 x10^3/uL (0.0-0.2) Sodium Level 138 mmol/L (136-145) Potassium Level 4.5 mmol/L (3.5-5.1) Chloride Level 108 mmol/L (98-107) Carbon Dioxide Level 25 mmol/L (21-32) Anion Gap 5 (6-14) Blood Urea Nitrogen 16 mg/dL (7-20) Creatinine 0.7 mg/dL (0.6-1.0) Estimated GFR (Cockcroft-Gault) 102.6 BUN/Creatinine Ratio 23 (6-20) Glucose Level 86 mg/dL (70-99) Calcium Level 9.0 mg/dL (8.5-10.1) Total Bilirubin 0.2 mg/dL (0.2-1.0) Aspartate Amino Transf (AST/SGOT) 14 U/L (15-37) Alanine Aminotransferase (ALT/SGPT) 18 U/L (14-59) Alkaline Phosphatase 57 U/L (46-116) Total Protein 6.5 g/dL (6.4-8.2) Albumin 3.1 g/dL (3.4-5.0) Albumin/Globulin Ratio 0.9 (1.0-1.7) Assessment and Plan Assessmemt and Plan Problems Medical Problems: (1) Hallucinations Status: Acute (2) Jennifer Status: Acute (3) Urinary tract infection Status: Acute Comment Review of Relevant I have reviewed the following items rosa (where applicable) has been applied. Labs Laboratory Tests Test 01/14/21 13:45 White Blood Count 6.3 x10^3/uL (4.0-11.0) Red Blood Count 4.29 x10^6/uL (3.50-5.40) Hemoglobin 12.4 g/dL (12.0-15.5) Hematocrit 39.0 % (36.0-47.0) Mean Corpuscular Volume 91 fL (79-100) Mean Corpuscular Hemoglobin 29 pg (25-35) Mean Corpuscular Hemoglobin Concent 32 g/dL (31-37) Red Cell Distribution Width 14.0 % (11.5-14.5) Platelet Count 113 x10^3/uL (140-400) Neutrophils (%) (Auto) 52 % (31-73) Lymphocytes (%) (Auto) 30 % (24-48) Monocytes (%) (Auto) 7 % (0-9) Eosinophils (%) (Auto) 9 % (0-3) Basophils (%) (Auto) 1 % (0-3) Neutrophils # (Auto) 3.3 x10^3/uL (1.8-7.7) Lymphocytes # (Auto) 1.9 x10^3/uL (1.0-4.8) Monocytes # (Auto) 0.5 x10^3/uL (0.0-1.1) Eosinophils # (Auto) 0.6 x10^3/uL (0.0-0.7) Basophils # (Auto) 0.1 x10^3/uL (0.0-0.2) Sodium Level 138 mmol/L (136-145) Potassium Level 4.5 mmol/L (3.5-5.1) Chloride Level 108 mmol/L (98-107) Carbon Dioxide Level 25 mmol/L (21-32) Anion Gap 5 (6-14) Blood Urea Nitrogen 16 mg/dL (7-20) Creatinine 0.7 mg/dL (0.6-1.0) Estimated GFR (Cockcroft-Gault) 102.6 BUN/Creatinine Ratio 23 (6-20) Glucose Level 86 mg/dL (70-99) Calcium Level 9.0 mg/dL (8.5-10.1) Total Bilirubin 0.2 mg/dL (0.2-1.0) Aspartate Amino Transf (AST/SGOT) 14 U/L (15-37) Alanine Aminotransferase (ALT/SGPT) 18 U/L (14-59) Alkaline Phosphatase 57 U/L (46-116) Total Protein 6.5 g/dL (6.4-8.2) Albumin 3.1 g/dL (3.4-5.0) Albumin/Globulin Ratio 0.9 (1.0-1.7) Laboratory Tests Test 01/14/21 13:45 White Blood Count 6.3 x10^3/uL (4.0-11.0) Red Blood Count 4.29 x10^6/uL (3.50-5.40) Hemoglobin 12.4 g/dL (12.0-15.5) Hematocrit 39.0 % (36.0-47.0) Mean Corpuscular Volume 91 fL (79-100) Mean Corpuscular Hemoglobin 29 pg (25-35) Mean Corpuscular Hemoglobin Concent 32 g/dL (31-37) Red Cell Distribution Width 14.0 % (11.5-14.5) Platelet Count 113 x10^3/uL (140-400) Neutrophils (%) (Auto) 52 % (31-73) Lymphocytes (%) (Auto) 30 % (24-48) Monocytes (%) (Auto) 7 % (0-9) Eosinophils (%) (Auto) 9 % (0-3) Basophils (%) (Auto) 1 % (0-3) Neutrophils # (Auto) 3.3 x10^3/uL (1.8-7.7) Lymphocytes # (Auto) 1.9 x10^3/uL (1.0-4.8) Monocytes # (Auto) 0.5 x10^3/uL (0.0-1.1) Eosinophils # (Auto) 0.6 x10^3/uL (0.0-0.7) Basophils # (Auto) 0.1 x10^3/uL (0.0-0.2) Sodium Level 138 mmol/L (136-145) Potassium Level 4.5 mmol/L (3.5-5.1) Chloride Level 108 mmol/L (98-107) Carbon Dioxide Level 25 mmol/L (21-32) Anion Gap 5 (6-14) Blood Urea Nitrogen 16 mg/dL (7-20) Creatinine 0.7 mg/dL (0.6-1.0) Estimated GFR (Cockcroft-Gault) 102.6 BUN/Creatinine Ratio 23 (6-20) Glucose Level 86 mg/dL (70-99) Calcium Level 9.0 mg/dL (8.5-10.1) Total Bilirubin 0.2 mg/dL (0.2-1.0) Aspartate Amino Transf (AST/SGOT) 14 U/L (15-37) Alanine Aminotransferase (ALT/SGPT) 18 U/L (14-59) Alkaline Phosphatase 57 U/L (46-116) Total Protein 6.5 g/dL (6.4-8.2) Albumin 3.1 g/dL (3.4-5.0) Albumin/Globulin Ratio 0.9 (1.0-1.7) Medications Current Medications Ketorolac Tromethamine (Toradol Im) 60 mg 1X ONCE IM Last administered on 01/06/21at 02:35; Start 01/06/21 at 01:45; Stop 01/06/21 at 01:46; Status DC Cephalexin HCl (Keflex) 500 mg 1X STAT PO ; Start 01/06/21 at 06:10; Stop 01/06/21 at 06:12; Status DC Lorazepam (Ativan) 1 mg 1X ONCE PO ; Start 01/06/21 at 06:30; Stop 01/06/21 at 06:31; Status DC Haloperidol Lactate (Haldol Inj) 5 mg STK-MED ONCE .ROUTE ; Start 01/06/21 at 06:24; Stop 01/06/21 at 06:24; Status DC Lorazepam (Ativan Inj) 2 mg STK-MED ONCE .ROUTE ; Start 01/06/21 at 06:24; Stop 01/06/21 at 06:24; Status DC Ketamine HCl (Ketamine) 500 mg STK-MED ONCE .ROUTE ; Start 01/06/21 at 06:26; Stop 01/06/21 at 06:26; Status DC Ketamine HCl (Ketamine) 200 mg 1X ONCE IM Last administered on 01/06/21at 06:29; Start 01/06/21 at 06:45; Stop 01/06/21 at 06:46; Status DC Haloperidol Lactate (Haldol Inj) 5 mg STK-MED ONCE .ROUTE ; Start 01/06/21 at 08:35; Stop 01/06/21 at 08:35; Status DC Lorazepam (Ativan Inj) 2 mg STK-MED ONCE .ROUTE ; Start 01/06/21 at 08:35; Stop 01/06/21 at 08:35; Status DC Haloperidol Lactate (Haldol Inj) 5 mg 1X ONCE IM Last administered on 01/06/21at 08:40; Start 01/06/21 at 08:45; Stop 01/06/21 at 08:46; Status DC Lorazepam (Ativan Inj) 2 mg 1X ONCE IM Last administered on 01/06/21at 08:40; Start 01/06/21 at 08:45; Stop 01/06/21 at 08:46; Status DC Cephalexin HCl (Keflex) 500 mg TID PO ; Start 01/06/21 at 14:00; Stop 01/06/21 at 17:00; Status DC Ondansetron HCl (Zofran) 4 mg PRN Q6HRS PRN IVP NAUSEA/VOMITING; Start 01/06/21 at 10:45 Calcium Carbonate/ Glycine (Tums) 500 mg PRN Q3HRS PRN PO UPSET STOMACH; Start 01/06/21 at 10:45 Zolpidem Tartrate (Ambien) 5 mg PRN QHS PRN PO INSOMNIA, MAY REPEAT IN 1HR Last administered on 01/15/21at 00:00; Start 01/06/21 at 10:45 Info (Non-Icu Electrolyte Protocol) 1 ea PRN DAILY PRN MC SEE COMMENTS; Start 01/06/21 at 10:45 Oxycodone HCl (Roxicodone) 5 mg PRN Q3HRS PRN PO BREAKTHROUGH PAIN Last administered on 01/15/21at 03:08; Start 01/06/21 at 10:45 Acetaminophen (Tylenol) 650 mg PRN Q6HRS PRN PO Headaches, Temp > 101.5F; Start 01/06/21 at 10:45 Senna/Docusate Sodium (Senna Plus) 1 tab BID PO Last administered on 01/14/21at 21:37; Start 01/06/21 at 21:00 Enoxaparin Sodium (Lovenox 40mg Syringe) 40 mg Q24H SQ Last administered on 01/14/21at 21:37; Start 01/06/21 at 21:00 Cephalexin HCl (Keflex) 500 mg TID PO Last administered on 01/07/21at 09:48; Start 01/06/21 at 19:00; Stop 01/07/21 at 13:50; Status DC Lorazepam (Ativan) 4 mg PRN Q6HRS PRN PO ANXIETY / AGITATION Last administered on 01/08/21at 07:42; Start 01/07/21 at 06:00; Stop 01/08/21 at 20:20; Status DC Lactobacillus Rhamnosus (Culturelle) 1 cap BID PO Last administered on 01/14/21at 21:36; Start 01/07/21 at 13:00 Levofloxacin/ Dextrose 50 ml @ 50 mls/hr Q24H IV Last administered on 01/10/21at 14:58; Start 01/07/21 at 14:00; Stop 01/10/21 at 15:59; Status DC Lorazepam (Ativan Inj) 2 mg PRN Q6HRS PRN IVP ANXIETY/AGITATION, 2ND CHOICE Last administered on 01/08/21at 15:31; Start 01/07/21 at 16:00; Stop 01/08/21 at 20:20; Status DC Lorazepam (Ativan Inj) 1 mg PRN Q6HRS PRN IVP ANXIETY/AGITATION, 1ST CHOICE Last administered on 01/08/21at 09:46; Start 01/07/21 at 16:00; Stop 01/08/21 at 20:20; Status DC Haloperidol Lactate (Haldol Inj) 5 mg PRN Q6HRS PRN IVP AGITATION, 2nd CHOICE Last administered on 01/09/21at 13:54; Start 01/07/21 at 16:00; Stop 01/09/21 at 13:59; Status DC Lorazepam (Ativan Inj) 1 mg PRN Q4HRS PRN IVP MILD-MODERATE AGITATION; Start 01/08/21 at 20:15; Stop 01/14/21 at 13:06; Status DC Lorazepam (Ativan Inj) 2 mg PRN Q4HRS PRN IVP SEVERE AGITATION Last administered on 01/14/21at 10:28; Start 01/08/21 at 20:15; Stop 01/14/21 at 13:06; Status DC Trazodone HCl (Desyrel) 100 mg QHS PO Last administered on 01/14/21at 21:37; Start 01/09/21 at 21:00 Quetiapine Fumarate (SEROquel) 50 mg DAILY PO Last administered on 01/14/21at 10:28; Start 01/09/21 at 13:00 Aripiprazole (Abilify) 5 mg DAILY PO Last administered on 01/14/21at 10:24; Start 01/09/21 at 14:00 Haloperidol Lactate (Haldol Inj) 5 mg PRN Q4HRS PRN IVP AGITATION, 2nd CHOICE Last administered on 01/14/21at 23:19; Start 01/09/21 at 14:00 Cephalexin HCl (Keflex) 500 mg TID PO Last administered on 01/13/21at 19:34; Start 01/11/21 at 09:00; Stop 01/13/21 at 23:30; Status DC Lorazepam (Ativan) 1 mg PRN Q6HRS PRN PO ANXIETY / AGITATION Last administered on 01/14/21at 21:54; Start 01/14/21 at 13:15 Benztropine Mesylate (Cogentin) 2 mg PRN BID PRN IM EXTRAPYRAMIDAL SIDE EFFECTS Last administered on 01/14/21at 14:02; Start 01/14/21 at 13:15 Lorazepam (Ativan Inj) 1 mg 1X ONCE IVP Last administered on 01/15/21at 00:46; Start 01/15/21 at 00:30; Stop 01/15/21 at 00:31; Status DC Lorazepam (Ativan Inj) 0.5 mg PRN Q12HRS PRN IVP ANXIETY / AGITATION; Start 01/15/21 at 06:30 Active Scripts Active Cephalexin 500 Mg Tablet 1 Tab PO BID 5 Days Tessalon Perle (Benzonatate) 100 Mg Capsule 1 Cap PO TID Ventolin Hfa Inhaler (Albuterol Sulfate) 18 Gm Hfa.aer.ad 2 Puff INH Q4HRS Cephalexin 500 Mg Tablet 1 Tab PO BID Vitals/I & O Vital Sign - Last 24 Hours 01/14/21 01/14/21 01/14/21 01/14/21 11:08 14:50 19:00 20:00 Temp 97.3 98.0 97.4 97.3 98.0 97.4 Pulse 62 59 79 Resp 18 16 20 B/P (MAP) 114/55 (74) 116/60 (78) 154/77 (102) Pulse Ox 94 95 98 O2 Delivery Room Air Room Air Room Air Room Air 01/14/21 01/15/21 01/15/21 23:00 02:58 07:00 Temp 98.5 97.6 98.0 98.5 97.6 98.0 Pulse 69 74 71 Resp 20 16 18 B/P (MAP) 142/75 (97) 122/90 (101) 121/61 (81) Pulse Ox 97 96 96 O2 Delivery Room Air Room Air Room Air Intake and Output 01/14/21 01/14/21 01/15/21 15:00 23:00 07:00 Intake Total 240 ml 180 ml Output Total 0 ml Balance 240 ml 180 ml Justicifation of Admission Dx: Justifications for Admission: Justification of Admission Dx: Yes Chronic Renal Failure: Encephalopathy BISMARK SMITH MD Jan 15, 2021 08:33
[2021-01-15] MEDS: LACTOBACILLUS RHAMNOSUS GG 1 CAPSULE. PO SCH ×2 (09:58→21:00)
[2021-01-15] MEDS: QUEtiapine 25 MG TABLET. PO SCH (09:59)
[2021-01-15] MEDS: SENNOSIDES/DOCUSATE 8.6/50MG TABLET. PO SCH ×2 (09:59→21:00)
[2021-01-15] MEDS: ARIPiprazole 5 MG TABLET PO SCH (09:59)
--- NOTE | 2021-01-15 10:18 | NUR ---
KATHRYN following. Discussed with RN, [facility] team coming back to visit with pt today, and determine whether she can go to [facility] today. KATHRYN will continue to follow. Addendum: 01/15/21 at 1507 by LEAH PERALTA Munira BURNHAM) met with pt, plan is for pt to go to the crisis center and get an appointment. Munira expressed concern for pt discharging home to care for herself medically as fell and took 4 RN's to get pt back up. Pt unable to take self to the bathroom etc. Pt cleared from a psych standpoint but not medically. RN notified. 1:1 ordered.
--- NOTE | 2021-01-15 10:54 | NUR ---
Hear loud noise from pt room. When entering the room found pt on floor beside the bed. all four siderails were up. pt has no pain or tenderness. vitals- 134/69, HR 72, 98% RA.
[2021-01-15 11:00] VITALS: BP 134/69
[2021-01-15 15:00] VITALS: BP 111/86
[2021-01-15 19:00] VITALS: BP 124/66
[2021-01-15] MEDS: HALOPERIDOL LACTATE 5 MG/ML VIAL. IVP PRN (19:32)
[2021-01-15] MEDS ORDERED: ZIPRASIDONE IM 20 MG VIAL. IM ONE (20:00)
[2021-01-15] MEDS: ENOXAPARIN 40 MG/0.4 ML SYRINGE. SQ SCH (21:00)
[2021-01-15] MEDS: traZODone 100 MG TABLET. PO SCH (22:19)
[2021-01-16] MEDS: oxyCODONE IR 5 MG TABLET PO PRN ×2 (01:55→09:18)
[2021-01-16 03:00] VITALS: BP 147/72
[2021-01-16 07:00] VITALS: BP 110/51
[2021-01-16] MEDS: ARIPiprazole 5 MG TABLET PO SCH (09:17)
[2021-01-16] MEDS: QUEtiapine 25 MG TABLET. PO SCH (09:17)
[2021-01-16] MEDS: LACTOBACILLUS RHAMNOSUS GG 1 CAPSULE. PO SCH ×2 (09:17→21:06)
[2021-01-16] MEDS: SENNOSIDES/DOCUSATE 8.6/50MG TABLET. PO SCH ×2 (09:18→21:06)
--- NOTE | 2021-01-16 09:31 | PDOC ---
PROGRESS NOTES Date of Service: DATE: 01/16/21 TIME: 09:29 Chief Complaint Chief Complaint impression Psychosis - PAT team assisting with appropriate placement and safe discharge disposition Manic behavior - previously diagnosed bipolar and schizoaffective. Will add benztropine for extrapyrimidal side effects Agitation - as above COPD - stable on room air UTI -treatment with Keflex Cocaine abuse - needs treatment after inpatient consideration of psychiatric placement/ OSH History of Present Illness History of Present Illness Still mumbling with some involuntary movements. Little easier to understand today says she recently moved back from [place] where she is visiting her sister. She notes she was previously patient of Dr. Bull. She is interested in mental health services and wants to stop cocaine. She try to get help reaching her food in the room currently. No pain complaints no shortness of breath no chest pain. 01/16/2021: Munira expressed concern for pt discharging home to care for herself medically as fell and took 4 RN's to get pt back up. 01-15 fall in room yesterday, unsafe discharge until she can ambulate safely, PT/OT Requested PAT team to reevaluate patient for safe discharge. Denies dysuria or nausea. bed alarm on WANTS TO STOP COCAINE USE consider OSH admit CT HEAD NEUROLOGY CONSULT, ammonia level, tsh, b12 level 01/15/2021: PAT team to reevaluate patient for safe discharge. Denies dysuria or nausea. WANTS TO STOP COCAINE USE 01/13/2021: Events overnight. PAT team to reevaluate patient today for safe discharge. Denies dysuria or nausea. May discontinue Keflex after today's dose. 01/12/2021 Patient seen and examined Chart reviewed Discussed with RN Patient is resting with no apparent distress 01/11/21: Discussed with RN. Chart Reviewed. Pt was seen and examined. Pt with improved mood. NAD and appears happy to talk. Pt is appreciative of the care she has received. She has no requests. Pt has knowledge about her UTI and understands her care. 01/10/2021: Chart Reviewed. Pt was seen and examined. Pt resting comfortably in NAD and no abnormal movements. Discussed with RN. No obvious injuries from previous fall. 01/09/2021: Pt was seen and examined. Was initially resting and comfortably. Upon waking, became slightly aggressive and agitated while reaching for her phone. Upon receiving her cell phone, pt does not use the phone and fiddles with buttons. Relaxes after Ativan. Discussed with RN and PAT. Chart reviewed. 01/08/2021 Patient seen and examined She is still pleasantly confused Has mitts on for her safety Discussed with RN Chart reviewed 01/07/2021 Patient seen and examined She is pleasantly confused Mumbling Has one-to-one observer Discussed with RN Chart reviewed Vitals Vitals Vital Signs Date Time Temp Pulse Resp B/P (MAP) Pulse Ox O2 Delivery O2 Flow Rate FiO2 01/16/21 07:00 99.0 65 20 110/51 (70) 99 Room Air 99.0 Physical Exam Physical Exam Pt sleeping comfortably. pleasant upon Snack sitting at bedside. Eating rice krispies NAD General: Alert, Cooperative, No acute distress, Other Heart: Regular rate, Normal S1, Normal S2, No murmurs Lungs: Clear Abdomen: Normal bowel sounds, Soft, No tenderness, No hepatosplenomegaly, No masses Extremities: No clubbing, No cyanosis, No edema Skin: No rashes Labs LABS PATIENT: JESU SANDHU EACCOUNT: [id number] : 1960 LOCATION: [address] [place] [address] AGE: 60 SEX: F EXAM STATUS: ADM IN ORD. PHYSICIAN: BISMARK SMITH MD REASON: altered mental status, fall PROCEDURE: CT HEAD WO CONTRAST INDICATION: Reason: altered mental status, fall / Spl. Instructions: / History: COMPARISON: None. TECHNIQUE: Axial CT images obtained through the head without intravenous contrast. One or more of the following individualized dose reduction techniques were utilized for this examination: 1. Automated exposure control; 2. Adjustment of the mA and/or kV according to patient size; 3. Use of iterative reconstruction technique. FINDINGS: No intracranial hemorrhage. No significant midline shift. Ventricles and sulci are globally prominent. Scattered foci of low attenuation within the white matter. IMPRESSION: * No acute intracranial hemorrhage. * Scattered regions of low attenuation within the white matter. Non-specific in nature but a common finding and frequently secondary to small vessel ischemic disease. Electronically signed by: Kobi Bull MD (01/16/2021 11:50 AM) DESKTOP- [id number] Assessment and Plan Assessmemt and Plan Problems Medical Problems: (1) Hallucinations Status: Acute (2) Jennifer Status: Acute (3) Urinary tract infection Status: Acute Comment Review of Relevant I have reviewed the following items rosa (where applicable) has been applied. Labs Laboratory Tests Test 01/14/21 13:45 White Blood Count 6.3 x10^3/uL (4.0-11.0) Red Blood Count 4.29 x10^6/uL (3.50-5.40) Hemoglobin 12.4 g/dL (12.0-15.5) Hematocrit 39.0 % (36.0-47.0) Mean Corpuscular Volume 91 fL (79-100) Mean Corpuscular Hemoglobin 29 pg (25-35) Mean Corpuscular Hemoglobin Concent 32 g/dL (31-37) Red Cell Distribution Width 14.0 % (11.5-14.5) Platelet Count 113 x10^3/uL (140-400) Neutrophils (%) (Auto) 52 % (31-73) Lymphocytes (%) (Auto) 30 % (24-48) Monocytes (%) (Auto) 7 % (0-9) Eosinophils (%) (Auto) 9 % (0-3) Basophils (%) (Auto) 1 % (0-3) Neutrophils # (Auto) 3.3 x10^3/uL (1.8-7.7) Lymphocytes # (Auto) 1.9 x10^3/uL (1.0-4.8) Monocytes # (Auto) 0.5 x10^3/uL (0.0-1.1) Eosinophils # (Auto) 0.6 x10^3/uL (0.0-0.7) Basophils # (Auto) 0.1 x10^3/uL (0.0-0.2) Sodium Level 138 mmol/L (136-145) Potassium Level 4.5 mmol/L (3.5-5.1) Chloride Level 108 mmol/L (98-107) Carbon Dioxide Level 25 mmol/L (21-32) Anion Gap 5 (6-14) Blood Urea Nitrogen 16 mg/dL (7-20) Creatinine 0.7 mg/dL (0.6-1.0) Estimated GFR (Cockcroft-Gault) 102.6 BUN/Creatinine Ratio 23 (6-20) Glucose Level 86 mg/dL (70-99) Calcium Level 9.0 mg/dL (8.5-10.1) Total Bilirubin 0.2 mg/dL (0.2-1.0) Aspartate Amino Transf (AST/SGOT) 14 U/L (15-37) Alanine Aminotransferase (ALT/SGPT) 18 U/L (14-59) Alkaline Phosphatase 57 U/L (46-116) Total Protein 6.5 g/dL (6.4-8.2) Albumin 3.1 g/dL (3.4-5.0) Albumin/Globulin Ratio 0.9 (1.0-1.7) Medications Current Medications Ketorolac Tromethamine (Toradol Im) 60 mg 1X ONCE IM Last administered on 01/06/21at 02:35; Start 01/06/21 at 01:45; Stop 01/06/21 at 01:46; Status DC Cephalexin HCl (Keflex) 500 mg 1X STAT PO ; Start 01/06/21 at 06:10; Stop 01/06/21 at 06:12; Status DC Lorazepam (Ativan) 1 mg 1X ONCE PO ; Start 01/06/21 at 06:30; Stop 01/06/21 at 06:31; Status DC Haloperidol Lactate (Haldol Inj) 5 mg STK-MED ONCE .ROUTE ; Start 01/06/21 at 06:24; Stop 01/06/21 at 06:24; Status DC Lorazepam (Ativan Inj) 2 mg STK-MED ONCE .ROUTE ; Start 01/06/21 at 06:24; Stop 01/06/21 at 06:24; Status DC Ketamine HCl (Ketamine) 500 mg STK-MED ONCE .ROUTE ; Start 01/06/21 at 06:26; Stop 01/06/21 at 06:26; Status DC Ketamine HCl (Ketamine) 200 mg 1X ONCE IM Last administered on 01/06/21at 06:29; Start 01/06/21 at 06:45; Stop 01/06/21 at 06:46; Status DC Haloperidol Lactate (Haldol Inj) 5 mg STK-MED ONCE .ROUTE ; Start 01/06/21 at 08:35; Stop 01/06/21 at 08:35; Status DC Lorazepam (Ativan Inj) 2 mg STK-MED ONCE .ROUTE ; Start 01/06/21 at 08:35; Stop 01/06/21 at 08:35; Status DC Haloperidol Lactate (Haldol Inj) 5 mg 1X ONCE IM Last administered on 01/06/21at 08:40; Start 01/06/21 at 08:45; Stop 01/06/21 at 08:46; Status DC Lorazepam (Ativan Inj) 2 mg 1X ONCE IM Last administered on 01/06/21at 08:40; Start 01/06/21 at 08:45; Stop 01/06/21 at 08:46; Status DC Cephalexin HCl (Keflex) 500 mg TID PO ; Start 01/06/21 at 14:00; Stop 01/06/21 at 17:00; Status DC Ondansetron HCl (Zofran) 4 mg PRN Q6HRS PRN IVP NAUSEA/VOMITING; Start 01/06/21 at 10:45 Calcium Carbonate/ Glycine (Tums) 500 mg PRN Q3HRS PRN PO UPSET STOMACH; Start 01/06/21 at 10:45 Zolpidem Tartrate (Ambien) 5 mg PRN QHS PRN PO INSOMNIA, MAY REPEAT IN 1HR Last administered on 01/15/21at 00:00; Start 01/06/21 at 10:45 Info (Non-Icu Electrolyte Protocol) 1 ea PRN DAILY PRN MC SEE COMMENTS; Start 01/06/21 at 10:45 Oxycodone HCl (Roxicodone) 5 mg PRN Q3HRS PRN PO BREAKTHROUGH PAIN Last administered on 01/16/21at 09:18; Start 01/06/21 at 10:45 Acetaminophen (Tylenol) 650 mg PRN Q6HRS PRN PO Headaches, Temp > 101.5F; Start 01/06/21 at 10:45 Senna/Docusate Sodium (Senna Plus) 1 tab BID PO Last administered on 01/16/21at 09:18; Start 01/06/21 at 21:00 Enoxaparin Sodium (Lovenox 40mg Syringe) 40 mg Q24H SQ Last administered on 01/14/21at 21:37; Start 01/06/21 at 21:00 Cephalexin HCl (Keflex) 500 mg TID PO Last administered on 01/07/21at 09:48; Start 01/06/21 at 19:00; Stop 01/07/21 at 13:50; Status DC Lorazepam (Ativan) 4 mg PRN Q6HRS PRN PO ANXIETY / AGITATION Last administered on 01/08/21at 07:42; Start 01/07/21 at 06:00; Stop 01/08/21 at 20:20; Status DC Lactobacillus Rhamnosus (Culturelle) 1 cap BID PO Last administered on 01/16/21at 09:17; Start 01/07/21 at 13:00 Levofloxacin/ Dextrose 50 ml @ 50 mls/hr Q24H IV Last administered on 01/10/21at 14:58; Start 01/07/21 at 14:00; Stop 01/10/21 at 15:59; Status DC Lorazepam (Ativan Inj) 2 mg PRN Q6HRS PRN IVP ANXIETY/AGITATION, 2ND CHOICE Last administered on 01/08/21at 15:31; Start 01/07/21 at 16:00; Stop 01/08/21 at 20:20; Status DC Lorazepam (Ativan Inj) 1 mg PRN Q6HRS PRN IVP ANXIETY/AGITATION, 1ST CHOICE Last administered on 01/08/21at 09:46; Start 01/07/21 at 16:00; Stop 01/08/21 at 20:20; Status DC Haloperidol Lactate (Haldol Inj) 5 mg PRN Q6HRS PRN IVP AGITATION, 2nd CHOICE Last administered on 01/09/21at 13:54; Start 01/07/21 at 16:00; Stop 01/09/21 at 13:59; Status DC Lorazepam (Ativan Inj) 1 mg PRN Q4HRS PRN IVP MILD-MODERATE AGITATION; Start 01/08/21 at 20:15; Stop 01/14/21 at 13:06; Status DC Lorazepam (Ativan Inj) 2 mg PRN Q4HRS PRN IVP SEVERE AGITATION Last administered on 01/14/21at 10:28; Start 01/08/21 at 20:15; Stop 01/14/21 at 13:06; Status DC Trazodone HCl (Desyrel) 100 mg QHS PO Last administered on 01/15/21at 22:19; Start 01/09/21 at 21:00 Quetiapine Fumarate (SEROquel) 50 mg DAILY PO Last administered on 01/16/21 09:17; Start 01/09/21 at 13:00 Aripiprazole (Abilify) 5 mg DAILY PO Last administered on 01/16/21at 09:17; Start 01/09/21 at 14:00 Haloperidol Lactate (Haldol Inj) 5 mg PRN Q4HRS PRN IVP AGITATION, 2nd CHOICE Last administered on 01/15/21at 19:32; Start 01/09/21 at 14:00 Cephalexin HCl (Keflex) 500 mg TID PO Last administered on 01/13/21at 19:34; Start 01/11/21 at 09:00; Stop 01/13/21 at 23:30; Status DC Lorazepam (Ativan) 1 mg PRN Q6HRS PRN PO ANXIETY / AGITATION Last administered on 01/16/21at 09:17; Start 01/14/21 at 13:15 Benztropine Mesylate (Cogentin) 2 mg PRN BID PRN IM EXTRAPYRAMIDAL SIDE EFFECTS Last administered on 01/14/21at 14:02; Start 01/14/21 at 13:15 Lorazepam (Ativan Inj) 1 mg 1X ONCE IVP Last administered on 01/15/21at 00:46; Start 01/15/21 at 00:30; Stop 01/15/21 at 00:31; Status DC Lorazepam (Ativan Inj) 0.5 mg PRN Q12HRS PRN IVP ANXIETY / AGITATION; Start 01/15/21 at 06:30 Ziprasidone (Geodon Im) 20 mg 1X ONCE IM Last administered on 01/15/21at 20:24; Start 01/15/21 at 20:00; Stop 01/15/21 at 20:01; Status DC Active Scripts Active Cephalexin 500 Mg Tablet 1 Tab PO BID 5 Days Tessalon Perle (Benzonatate) 100 Mg Capsule 1 Cap PO TID Ventolin Hfa Inhaler (Albuterol Sulfate) 18 Gm Hfa.aer.ad 2 Puff INH Q4HRS Cephalexin 500 Mg Tablet 1 Tab PO BID Vitals/I & O Vital Sign - Last 24 Hours 01/15/21 01/15/21 01/15/21 01/15/21 11:00 15:00 19:00 20:00 Temp 97.7 97.8 98.3 97.7 97.8 98.3 Pulse 74 74 78 Resp 18 18 18 B/P (MAP) 134/69 (90) 111/86 (94) 124/66 (85) Pulse Ox 98 97 93 O2 Delivery Room Air Room Air Room Air Room Air 01/15/21 01/16/21 01/16/21 01/16/21 23:00 01:55 03:00 03:35 Temp 97.5 97.5 Pulse 61 Resp 20 16 18 16 B/P (MAP) 147/72 (97) Pulse Ox 97 95 97 O2 Delivery Room Air Room Air Room Air 01/16/21 07:00 Temp 99.0 99.0 Pulse 65 Resp 20 B/P (MAP) 110/51 (70) Pulse Ox 99 O2 Delivery Room Air Intake and Output0 01/15/21 01/15/21 01/16/21 15:00 23:00 07:00 Intake Total 340 ml 240 ml Balance 340 ml 240 ml Justicifation of Admission Dx: Justifications for Admission: Justification of Admission Dx: Yes Chronic Renal Failure: Encephalopathy BISMARK SMITH MD Jan 16, 2021 09:30
[2021-01-16 11:23] VITALS: BP 149/62
--- NOTE | 2021-01-16 11:52 | RAD ---
INDICATION: Reason: altered mental status, fall / Spl. Instructions: / History: COMPARISON: None. TECHNIQUE: Axial CT images obtained through the head without intravenous contrast. One or more of the following individualized dose reduction techniques were utilized for this examinat ion: 1. Automated exposure control; 2. Adjustment of the mA and/or kV according to patient size; 3 . Use of iterative reconstruction technique. FINDINGS: No intracranial hemorrhage. No significant midline shift. Ventricles and sulci are globally prominent. Scattered foci of low attenuation within the white matter. IMPRESSION: * No acute intracranial hemorrhage. * Scattered regions of low attenuation within the white matter. Non-specific in nature but a common finding and frequently secondary to small vessel ischemic disease. Electronically signed by: Kobi Bull MD (01/16/2021 11:50 AM) [id number]
[2021-01-16 15:00] VITALS: BP 113/49
[2021-01-16 19:00] VITALS: BP 111/60
[2021-01-16] MEDS: traZODone 100 MG TABLET. PO SCH (21:06)
[2021-01-16] MEDS: ENOXAPARIN 40 MG/0.4 ML SYRINGE. SQ SCH (21:06)
[2021-01-16 23:00] VITALS: BP 107/58
[2021-01-17 03:00] VITALS: BP 95/60
[2021-01-17 07:15] VITALS: BP 112/40
[2021-01-17 07:38] LABS: BASO # 0.1 x10^3/uL (0.0-0.2); BASO % 1 % (0-3); EOS # 0.4 x10^3/uL (0.0-0.7); EOS % 8 % (0-3); HEMATOCRIT 32.7 % (36.0-47.0); HEMOGLOBIN 10.8 g/dL (12.0-15.5); LYMPH % 36 % (24-48); MEAN CORPUSCULAR HEMOGLOBIN 29 pg (25-35); MEAN CORPUSCULAR HGB CONC 33 g/dL (31-37); MEAN CORPUSCULAR VOLUME 88 fL (79-100); MONO # 0.5 x10^3/uL (0.0-1.1); MONO % 9 % (0-9); NEUT # 2.6 x10^3/uL (1.8-7.7); NEUT % 46 % (31-73); PLATELET COUNT 181 x10^3/uL (140-400); RED BLOOD COUNT 3.73 x10^6/uL (3.50-5.40); RED CELL DISTRIBUTION WIDTH 13.6 % (11.5-14.5); WHITE BLOOD COUNT 5.7 x10^3/uL (4.0-11.0)
[2021-01-17 07:57] LABS: ALBUMIN 2.9 g/dL (3.4-5.0); ALBUMIN/GLOBULIN RATIO 0.9 (1.0-1.7); CALCIUM 8.8 mg/dL (8.5-10.1); CREATININE 0.9 mg/dL (0.6-1.0); GFR 76.8; POTASSIUM 3.9 mmol/L (3.5-5.1); TOTAL BILIRUBIN 0.2 mg/dL (0.2-1.0); TOTAL PROTEIN 6.1 g/dL (6.4-8.2)
[2021-01-17] MEDS: SENNOSIDES/DOCUSATE 8.6/50MG TABLET. PO SCH (08:41)
[2021-01-17] MEDS: QUEtiapine 25 MG TABLET. PO SCH (08:41)
[2021-01-17] MEDS: ARIPiprazole 5 MG TABLET PO SCH (08:41)
[2021-01-17] MEDS: LACTOBACILLUS RHAMNOSUS GG 1 CAPSULE. PO SCH (08:41)
--- NOTE | 2021-01-17 08:43 | PDOC2 ---
NEUROLOGY CONSULT Date of Service DOS: DATE: 01/17/21 TIME: 08:36 Reason for Consult Reason for Consult: Hallucinations, drug use, altered mental status Referring Physician Referring Physician: Dr. Munson Source Source: Chart review, Patient History of Present Illness History of Present Illness The patient is a 60-year-old right-handed female admitted 11 days ago. She was at a gas station, she asked the attendant for help, needed to get back on her medications for anxiety, having been off them for 3 years. She also has chronic back pain. She was combative in the emergency department and was thought to be a danger to herself and staff. She has been in several other emergency rooms. She tells me she had a stroke 25 years ago with left hemiparesis but she gets around with a cane. She is not currently hallucinating she says. She has never had a seizure or significant head injury. She would like to go home and have family and home health take care of her. Past Medical History Pulmonary: COPD CENTRAL NERVOUS SYSTEM: CVA Psych: Anxiety Past Surgical History Past Surgical History: No pertinent history Family History Family History: No pertinent hx Social History Social History Single, uses cocaine, occasional tobacco, rare alcohol, unemployed Current Medications Current Medications Current Medications Ketorolac Tromethamine (Toradol Im) 60 mg 1X ONCE IM Last administered on 01/06/21at 02:35; Start 01/06/21 at 01:45; Stop 01/06/21 at 01:46; Status DC Cephalexin HCl (Keflex) 500 mg 1X STAT PO ; Start 01/06/21 at 06:10; Stop 01/06/21 at 06:12; Status DC Lorazepam (Ativan) 1 mg 1X ONCE PO ; Start 01/06/21 at 06:30; Stop 01/06/21 at 06:31; Status DC Haloperidol Lactate (Haldol Inj) 5 mg STK-MED ONCE .ROUTE ; Start 01/06/21 at 06:24; Stop 01/06/21 at 06:24; Status DC Lorazepam (Ativan Inj) 2 mg STK-MED ONCE .ROUTE ; Start 01/06/21 at 06:24; Stop 01/06/21 at 06:24; Status DC Ketamine HCl (Ketamine) 500 mg STK-MED ONCE .ROUTE ; Start 01/06/21 at 06:26; Stop 01/06/21 at 06:26; Status DC Ketamine HCl (Ketamine) 200 mg 1X ONCE IM Last administered on 01/06/21at 06:29; Start 01/06/21 at 06:45; Stop 01/06/21 at 06:46; Status DC Haloperidol Lactate (Haldol Inj) 5 mg STK-MED ONCE .ROUTE ; Start 01/06/21 at 08:35; Stop 01/06/21 at 08:35; Status DC Lorazepam (Ativan Inj) 2 mg STK-MED ONCE .ROUTE ; Start 01/06/21 at 08:35; Stop 01/06/21 at 08:35; Status DC Haloperidol Lactate (Haldol Inj) 5 mg 1X ONCE IM Last administered on 01/06/21at 08:40; Start 01/06/21 at 08:45; Stop 01/06/21 at 08:46; Status DC Lorazepam (Ativan Inj) 2 mg 1X ONCE IM Last administered on 01/06/21at 08:40; Start 01/06/21 at 08:45; Stop 01/06/21 at 08:46; Status DC Cephalexin HCl (Keflex) 500 mg TID PO ; Start 01/06/21 at 14:00; Stop 01/06/21 at 17:00; Status DC Ondansetron HCl (Zofran) 4 mg PRN Q6HRS PRN IVP NAUSEA/VOMITING; Start 01/06/21 at 10:45 Calcium Carbonate/ Glycine (Tums) 500 mg PRN Q3HRS PRN PO UPSET STOMACH; Start 01/06/21 at 10:45 Zolpidem Tartrate (Ambien) 5 mg PRN QHS PRN PO INSOMNIA, MAY REPEAT IN 1HR Last administered on 01/15/21at 00:00; Start 01/06/21 at 10:45 Info (Non-Icu Electrolyte Protocol) 1 ea PRN DAILY PRN MC SEE COMMENTS; Start 01/06/21 at 10:45 Oxycodone HCl (Roxicodone) 5 mg PRN Q3HRS PRN PO BREAKTHROUGH PAIN Last administered on 01/16/21at 09:18; Start 01/06/21 at 10:45 Acetaminophen (Tylenol) 650 mg PRN Q6HRS PRN PO Headaches, Temp > 101.5F; Start 01/06/21 at 10:45 Senna/Docusate Sodium (Senna Plus) 1 tab BID PO Last administered on 01/16/21at 21:06; Start 01/06/21 at 21:00 Enoxaparin Sodium (Lovenox 40mg Syringe) 40 mg Q24H SQ Last administered on 01/16/21at 21:06; Start 01/06/21 at 21:00 Cephalexin HCl (Keflex) 500 mg TID PO Last administered on 01/07/21at 09:48; Start 01/06/21 at 19:00; Stop 01/07/21 at 13:50; Status DC Lorazepam (Ativan) 4 mg PRN Q6HRS PRN PO ANXIETY / AGITATION Last administered on 01/08/21at 07:42; Start 01/07/21 at 06:00; Stop 01/08/21 at 20:20; Status DC Lactobacillus Rhamnosus (Culturelle) 1 cap BID PO Last administered on 01/16/21at 21:06; Start 01/07/21 at 13:00 Levofloxacin/ Dextrose 50 ml @ 50 mls/hr Q24H IV Last administered on 01/10/21at 14:58; Start 01/07/21 at 14:00; Stop 01/10/21 at 15:59; Status DC Lorazepam (Ativan Inj) 2 mg PRN Q6HRS PRN IVP ANXIETY/AGITATION, 2ND CHOICE Last administered on 01/08/21at 15:31; Start 01/07/21 at 16:00; Stop 01/08/21 at 20:20; Status DC Lorazepam (Ativan Inj) 1 mg PRN Q6HRS PRN IVP ANXIETY/AGITATION, 1ST CHOICE Last administered on 01/08/21at 09:46; Start 01/07/21 at 16:00; Stop 01/08/21 at 20:20; Status DC Haloperidol Lactate (Haldol Inj) 5 mg PRN Q6HRS PRN IVP AGITATION, 2nd CHOICE Last administered on 01/09/21at 13:54; Start 01/07/21 at 16:00; Stop 01/09/21 at 13:59; Status DC Lorazepam (Ativan Inj) 1 mg PRN Q4HRS PRN IVP MILD-MODERATE AGITATION; Start 01/08/21 at 20:15; Stop 01/14/21 at 13:06; Status DC Lorazepam (Ativan Inj) 2 mg PRN Q4HRS PRN IVP SEVERE AGITATION Last administere d on 01/14/21at 10:28; Start 01/08/21 at 20:15; Stop 01/14/21 at 13:06; Status DC Trazodone HCl (Desyrel) 100 mg QHS PO Last administered on 01/16/21at 21:06; Start 01/09/21 at 21:00 Quetiapine Fumarate (SEROquel) 50 mg DAILY PO Last administered on 01/16/21at 09:17; Start 01/09/21 at 13:00 Aripiprazole (Abilify) 5 mg DAILY PO Last administered on 01/16/21at 09:17; Start 01/09/21 at 14:00 Haloperidol Lactate (Haldol Inj) 5 mg PRN Q4HRS PRN IVP AGITATION, 2nd CHOICE Last administered on 01/15/21at 19:32; Start 01/09/21 at 14:00 Cephalexin HCl (Keflex) 500 mg TID PO Last administered on 01/13/21at 19:34; Start 01/11/21 at 09:00; Stop 01/13/21 at 23:30; Status DC Lorazepam (Ativan) 1 mg PRN Q6HRS PRN PO ANXIETY / AGITATION Last administered on 01/16/21at 15:13; Start 01/14/21 at 13:15 Benztropine Mesylate (Cogentin) 2 mg PRN BID PRN IM EXTRAPYRAMIDAL SIDE EFFECTS Last administered on 01/14/21at 14:02; Start 01/14/21 at 13:15 Lorazepam (Ativan Inj) 1 mg 1X ONCE IVP Last administered on 01/15/21at 00:46; Start 01/15/21 at 00:30; Stop 01/15/21 at 00:31; Status DC Lorazepam (Ativan Inj) 0.5 mg PRN Q12HRS PRN IVP ANXIETY / AGITATION; Start 01/15/21 at 06:30 Ziprasidone (Geodon Im) 20 mg 1X ONCE IM Last administered on 01/15/21at 20:24; Start 01/15/21 at 20:00; Stop 01/15/21 at 20:01; Status DC Folic Acid (Folic Acid) 1 mg DAILY PO ; Start 01/17/21 at 09:00 Multivitamins (Thera M Plus) 1 tab DAILY PO ; Start 01/17/21 at 09:00 Thiamine Mononitrate (Vitamin B-1) 100 mg DAILY PO ; Start 01/17/21 at 09:00 Active Scripts Active Cephalexin 500 Mg Tablet 1 Tab PO BID 5 Days Tessalon Perle (Benzonatate) 100 Mg Capsule 1 Cap PO TID Ventolin Hfa Inhaler (Albuterol Sulfate) 18 Gm Hfa.aer.ad 2 Puff INH Q4HRS Cephalexin 500 Mg Tablet 1 Tab PO BID Allergies Allergies: Coded Allergies: No Known Drug Allergies (Unverified , 07/05/18) ROS Review of System Negative for fever, chills, weight loss, shortness of breath, chest pain, indigestion, hematochezia, melena, and dysuria. Full 14-point review of systems is negative. Physical Exam Physical Examination General: Well-developed, well-nourished black female in no acute distress HEENT: Normocephalic andatraumatic. Temporal arteriespulsatile and nontender. Neck: Supple without bruit, no meningismus Musculoskeletal: Stability:see neurologic. Gait exam:see neurologic. Tone:see neurologic.Strength:see neurologic. Neurological: Mental Status:orientation, memory, attention span/concentration, language, fund of knowledge: She knows that location, is off on the date by 1 day, names and repeats well, speech fluent, no evidence of psychosis or hallucinations during this exam. Cranial Nerves:Pupils equal and reactive to light, extraocular movements areintact, visual quarles are full to confrontation. Facial sensation is normal. There is minimal left central facial weakness. Vestibulo-ocular reflex is intact. Palate elevates and tongue protrudes in midline. All other cranial related problems are negative except as mentioned before.Reflexes:2+ and symmetric with flexor plantar responses. Motor:4/5 spastic left hemiparesis. Coordination:Finger-nose finger and pifk-fs-[id number] testing are normal. Rapid alternating movements and fine finger movements are intact. Gait:Not tested. Sensory:Normal pinprick, vibration, light touch, proprioception. Vitals VITALS Vital Signs Date Time Temp Pulse Resp B/P (MAP) Pulse Ox O2 Delivery O2 Flow Rate FiO2 10/1/21 07:15 98.5 85 16 112/40 (64) 94 Room Air 98.5 Labs Labs Laboratory Tests Test 01/16/21 15:37 01/17/21 05:55 Ammonia 10 mcmol/L (11-34) Vitamin B12 Level 412 pg/mL (247-911) Thyroid Stimulating Hormone (TSH) 0.272 uIU/mL (0.358-3.74) Free Thyroxine 0.78 ng/dL (0.76-1.46) White Blood Count 5.7 x10^3/uL (4.0-11.0) Red Blood Count 3.73 x10^6/uL (3.50-5.40) Hemoglobin 10.8 g/dL (12.0-15.5) Hematocrit 32.7 % (36.0-47.0) Mean Corpuscular Volume 88 fL (79-100) Mean Corpuscular Hemoglobin 29 pg (25-35) Mean Corpuscular Hemoglobin Concent 33 g/dL (31-37) Red Cell Distribution Width 13.6 % (11.5-14.5) Platelet Count 181 x10^3/uL (140-400) Neutrophils (%) (Auto) 46 % (31-73) Lymphocytes (%) (Auto) 36 % (24-48) Monocytes (%) (Auto) 9 % (0-9) Eosinophils (%) (Auto) 8 % (0-3) Basophils (%) (Auto) 1 % (0-3) Neutrophils # (Auto) 2.6 x10^3/uL (1.8-7.7) Lymphocytes # (Auto) 2.0 x10^3/uL (1.0-4.8) Monocytes # (Auto) 0.5 x10^3/uL (0.0-1.1) Eosinophils # (Auto) 0.4 x10^3/uL (0.0-0.7) Basophils # (Auto) 0.1 x10^3/uL (0.0-0.2) Sodium Level 142 mmol/L (136-145) Potassium Level 3.9 mmol/L (3.5-5.1) Chloride Level 107 mmol/L (98-107) Carbon Dioxide Level 29 mmol/L (21-32) Anion Gap 6 (6-14) Blood Urea Nitrogen 21 mg/dL (7-20) Creatinine 0.9 mg/dL (0.6-1.0) Estimated GFR (Cockcroft-Gault) 76.8 BUN/Creatinine Ratio 23 (6-20) Glucose Level 84 mg/dL (70-99) Calcium Level 8.8 mg/dL (8.5-10.1) Total Bilirubin 0.2 mg/dL (0.2-1.0) Aspartate Amino Transf (AST/SGOT) 17 U/L (15-37) Alanine Aminotransferase (ALT/SGPT) 26 U/L (14-59) Alkaline Phosphatase 63 U/L (46-116) Total Protein 6.1 g/dL (6.4-8.2) Albumin 2.9 g/dL (3.4-5.0) Albumin/Globulin Ratio 0.9 (1.0-1.7) Laboratory Tests Test 01/16/21 15:37 01/17/21 05:55 Ammonia 10 mcmol/L (11-34) Vitamin B12 Level 412 pg/mL (247-911) Thyroid Stimulating Hormone (TSH) 0.272 uIU/mL (0.358-3.74) Free Thyroxine 0.78 ng/dL (0.76-1.46) White Blood Count 5.7 x10^3/uL (4.0-11.0) Red Blood Count 3.73 x10^6/uL (3.50-5.40) Hemoglobin 10.8 g/dL (12.0-15.5) Hematocrit 32.7 % (36.0-47.0) Mean Corpuscular Volume 88 fL (79-100) Mean Corpuscular Hemoglobin 29 pg (25-35) Mean Corpuscular Hemoglobin Concent 33 g/dL (31-37) Red Cell Distribution Width 13.6 % (11.5-14.5) Platelet Count 181 x10^3/uL (140-400) Neutrophils (%) (Auto) 46 % (31-73) Lymphocytes (%) (Auto) 36 % (24-48) Monocytes (%) (Auto) 9 % (0-9) Eosinophils (%) (Auto) 8 % (0-3) Basophils (%) (Auto) 1 % (0-3) Neutrophils # (Auto) 2.6 x10^3/uL (1.8-7.7) Lymphocytes # (Auto) 2.0 x10^3/uL (1.0-4.8) Monocytes # (Auto) 0.5 x10^3/uL (0.0-1.1) Eosinophils # (Auto) 0.4 x10^3/uL (0.0-0.7) Basophils # (Auto) 0.1 x10^3/uL (0.0-0.2) Sodium Level 142 mmol/L (136-145) Potassium Level 3.9 mmol/L (3.5-5.1) Chloride Level 107 mmol/L (98-107) Carbon Dioxide Level 29 mmol/L (21-32) Anion Gap 6 (6-14) Blood Urea Nitrogen 21 mg/dL (7-20) Creatinine 0.9 mg/dL (0.6-1.0) Estimated GFR (Cockcroft-Gault) 76.8 BUN/Creatinine Ratio 23 (6-20) Glucose Level 84 mg/dL (70-99) Calcium Level 8.8 mg/dL (8.5-10.1) Total Bilirubin 0.2 mg/dL (0.2-1.0) Aspartate Amino Transf (AST/SGOT) 17 U/L (15-37) Alanine Aminotransferase (ALT/SGPT) 26 U/L (14-59) Alkaline Phosphatase 63 U/L (46-116) Total Protein 6.1 g/dL (6.4-8.2) Albumin 2.9 g/dL (3.4-5.0) Albumin/Globulin Ratio 0.9 (1.0-1.7) Images Images CT head: No intracranial hemorrhage. No significant midline shift. Ventricles and sulci are globally prominent. Scattered foci of low attenuation within the white matter. IMPRESSION: * No acute intracranial hemorrhage. * Scattered regions of low attenuation within the white matter. Non-specific in nature but a common finding and frequently secondary to small vessel ischemic disease. Assessment/Plan Assessment/Plan Impression: Psychosis, cocaine abuse, getting better, no acute neurological issues History of most likely lacunar stroke causing spastic left hemiparesis Recommendations: She has been here for 11 days, has received no physical therapy, I have ordered this. Decision regarding placement per family, patient, and recommendations from therapy Apparently no longer needs acute psychiatric stay Neurology will follow at intervals. Thank you for letting me help with the patient's care. MIRANDA RANKIN MD Jan 17, 2021 08:43
[2021-01-17] MEDS ORDERED: FOLIC ACID 1 MG TABLET. PO SCH (09:00)
[2021-01-17] MEDS ORDERED: THIAMINE 100 MG TABLET. PO SCH (09:00)
[2021-01-17] MEDS ORDERED: MULTIVITAMIN with MINERAL TABLET. PO SCH (09:00)
[2021-01-17 10:59] VITALS: BP 124/68
[2021-01-17] MEDS: oxyCODONE IR 5 MG TABLET PO PRN (11:36)
--- NOTE | 2021-01-17 12:32 | PDOC ---
[facility] PROGRESS NOTE Date of Service DOS: DATE: 01/17/21 TIME: 12:23 Chief Complaint Chief Complaint Psychosis Manic behavior Agitation Substance abuse COPD UTI History of Present Illness History of Present Illness 01/17/2021: Pt was seen and examined. Chart reviewed. Discussed with RN. Sitting up in bed and talkative during interview. Pt in NAD with no abnormal or asymmetric movements. 01/16/2021: Munira expressed concern for pt discharging home to care for herself medically as fell and took 4 RN's to get pt back up. 01-15 fall in room yesterday, unsafe discharge until she can ambulate safely, PT/OT Requested PAT team to reevaluate patient for safe discharge. Denies dysuria or nausea. bed alarm on WANTS TO STOP COCAINE USE consider OSH admit CT HEAD NEUROLOGY CONSULT, ammonia level, tsh, b12 level 01/15/2021: PAT team to reevaluate patient for safe discharge. Denies dysuria or nausea. WANTS TO STOP COCAINE USE 01/13/2021: Events overnight. PAT team to reevaluate patient today for safe discharge. Denies dysuria or nausea. May discontinue Keflex after today's dose . 01/12/2021 Patient seen and examined Chart reviewed Discussed with RN Patient is resting with no apparent distress 01/11/21: Discussed with RN. Chart Reviewed. Pt was seen and examined. Pt with improved mood. NAD and appears happy to talk. Pt is appreciative of the care she has received. She has no requests. Pt has knowledge about her UTI and understands her care. 01/10/2021: Chart Reviewed. Pt was seen and examined. Pt resting comfortably in NAD and no abnormal movements. Discussed with RN. No obvious injuries from previous fall. 01/09/2021: Pt was seen and examined. Was initially resting and comfortably. Upon waking, became slightly aggressive and agitated while reaching for her phone. Upon receiving her cell phone, pt does not use the phone and fiddles with buttons. Relaxes after Ativan. Discussed with RN and PAT. Chart reviewed. 01/08/2021 Patient seen and examined She is still pleasantly confused Has mitts on for her safety Discussed with RN Chart reviewed 01/07/2021 Patient seen and examined She is pleasantly confused Mumbling Has one-to-one observer Discussed with RN Chart reviewed Vitals/I&O Vitals/I&O: Vital Signs Date Time Temp Pulse Resp B/P (MAP) Pulse Ox O2 Delivery O2 Flow Rate FiO2 01/17/21 11:36 Room Air 01/17/21 10:59 98.3 71 18 124/68 (86) 94 98.3 I & O 01/16/21 01/16/21 01/17/21 15:00 23:00 07:00 Intake Total 240 ml Balance 240 ml Physical Exam Physical Exam: Pt is comfortable while sitting up in bed with food tray at bedside. Pleasant during interview. NAD General: Alert, Cooperative, No acute distress, Other Heart: Regular rate, Normal S1, Normal S2, No murmurs Lungs: Clear Abdomen: Normal bowel sounds, Soft, No tenderness, No hepatosplenomegaly, No masses Extremities: No clubbing, No cyanosis, No edema Skin: No rashes Labs Labs: Laboratory Tests Test 01/16/21 15:37 01/17/21 05:55 Ammonia 10 mcmol/L (11-34) Vitamin B12 Level 412 pg/mL (247-911) Thyroid Stimulating Hormone (TSH) 0.272 uIU/mL (0.358-3.74) Free Thyroxine 0.78 ng/dL (0.76-1.46) White Blood Count 5.7 x10^3/uL (4.0-11.0) Red Blood Count 3.73 x10^6/uL (3.50-5.40) Hemoglobin 10.8 g/dL (12.0-15.5) Hematocrit 32.7 % (36.0-47.0) Mean Corpuscular Volume 88 fL (79-100) Mean Corpuscular Hemoglobin 29 pg (25-35) Mean Corpuscular Hemoglobin Concent 33 g/dL (31-37) Red Cell Distribution Width 13.6 % (11.5-14.5) Platelet Count 181 x10^3/uL (140-400) Neutrophils (%) (Auto) 46 % (31-73) Lymphocytes (%) (Auto) 36 % (24-48) Monocytes (%) (Auto) 9 % (0-9) Eosinophils (%) (Auto) 8 % (0-3) Basophils (%) (Auto) 1 % (0-3) Neutrophils # (Auto) 2.6 x10^3/uL (1.8-7.7) Lymphocytes # (Auto) 2.0 x10^3/uL (1.0-4.8) Monocytes # (Auto) 0.5 x10^3/uL (0.0-1.1) Eosinophils # (Auto) 0.4 x10^3/uL (0.0-0.7) Basophils # (Auto) 0.1 x10^3/uL (0.0-0.2) Sodium Level 142 mmol/L (136-145) Potassium Level 3.9 mmol/L (3.5-5.1) Chloride Level 107 mmol/L (98-107) Carbon Dioxide Level 29 mmol/L (21-32) Anion Gap 6 (6-14) Blood Urea Nitrogen 21 mg/dL (7-20) Creatinine 0.9 mg/dL (0.6-1.0) Estimated GFR (Cockcroft-Gault) 76.8 BUN/Creatinine Ratio 23 (6-20) Glucose Level 84 mg/dL (70-99) Calcium Level 8.8 mg/dL (8.5-10.1) Total Bilirubin 0.2 mg/dL (0.2-1.0) Aspartate Amino Transf (AST/SGOT) 17 U/L (15-37) Alanine Aminotransferase (ALT/SGPT) 26 U/L (14-59) Alkaline Phosphatase 63 U/L (46-116) Total Protein 6.1 g/dL (6.4-8.2) Albumin 2.9 g/dL (3.4-5.0) Albumin/Globulin Ratio 0.9 (1.0-1.7) Review of Systems Review of Systems: Agitation (resolved) Psychosis (resolved) Fall Assessment and Plan Assessmemt and Plan Problems Medical Problems: (1) Hallucinations Status: Acute (2) Jennifer Status: Acute (3) Urinary tract infection Status: Acute Psychosis Manic behavior Agitation Substance abuse COPD UTI Plan: Continue supportive care Marcos Probable discharge home this afternoon with close outpatient follow-up Home meds DVT prophylaxis Encourage p.o. Full code Comment Review of Relevant I have reviewed the following items rosa (where applicable) has been applied. Medications: Current Medications Medications (Trade) Dose Ordered Sig/Razia Route PRN Reason Start Time Stop Time Status Last Admin Dose Admin Folic Acid (Folic Acid) 1 mg DAILY PO 01/17/21 09:00 01/17/21 08:41 Multivitamins (Thera M Plus) 1 tab DAILY PO 01/17/21 09:00 01/17/21 08:41 Thiamine Mononitrate (Vitamin B-1) 100 mg DAILY PO 01/17/21 09:00 01/17/21 08:41 Justifications for Admission Other Justification KAUR MORAN III, DO Jan 17, 2021 12:32
--- NOTE | 2021-01-17 13:26 | NUR ---
Patient was not cooperate with care today. Patient get out of bed multiple times without help and would not go back to bed. Patient told this RN to get out of the room when trying to help. Patient want to go home today and will not stay in her room.
[2021-01-17] MEDS ORDERED: TRAZ-123 PO (13:52)
[2021-01-17] MEDS ORDERED: QUET25TA3 PO (13:52)
[2021-01-17] MEDS ORDERED: ARIP5TAB58 PO (13:52)
--- NOTE | 2021-01-17 14:07 | NUR ---
Patient tried to leave and stand outside the room. Patient become aggressive would not go back to her room and would not listen and did not want this RN to help her. Security was called and charge nurse notified.
--- NOTE | 2021-01-17 14:11 | NUR ---
Patient still insist on going home after this RN educate patient about her safety at home. Dr. Sinclair and nursing machinist supervisor was notified about the situation and patient to be discharge home today and cap pass will be provide.
--- NOTE | 2021-01-17 14:46 | NUR ---
Patient discharge home with self care today via wheelchair accompanied by transporter. Patient is alert and discharge paperwork given to patient. Patient verbalized understanding of follow up and discharge instruction. [facility] was used to take patient home.
--- NOTE | 2021-01-17 15:37 | DS ---
DATE OF DISCHARGE: 01/17/2021 ADMISSION DIAGNOSIS: Psychosis. DISCHARGE DIAGNOSES: Resolving psychosis, history of drug abuse, depression, anxiety, manic behavior, chronic obstructive pulmonary disease and resolving urinary tract infection. HOSPITAL COURSE: The patient is a pleasant, middle-aged female, who presented with psychosis, was cocaine positive in our drug screen. She was admitted. We gave her p.r.n. antipsychotics. Over the past day, she has returned to her baseline. Today, I saw and examined her. She is probably at her baseline, wants to go home. We plan to discharge home with close outpatient followup. DISPOSITION: Home. ACTIVITY: As tolerated. DIET: Low sodium. DISCHARGE MEDICATIONS: Please see the MRAD. Tessalon Perles, albuterol, vitamins, trazodone 100 at bedtime, Abilify 5 daily and Seroquel 50 a day. TOTAL TIME: [address]: Kev TID: [id number]
--- NOTE | 2021-01-17 15:46 | NUR ---
SW following. Discussed with RN, discharge order for home with self care. Pt is a high risk readmission.
== END 2021-01-17 14:54 | disposition home or self-care (01) | DRG 690 ==
LOC: ER 01:03 → ED HOLD 10:18 → 5 SOUTH 12:00 → 4 NORTH 01-14 22:53
PROVIDERS: ADMIT Student in an Organized Health Care Education/Training Program; ATTEND Student in an Organized Health Care Education/Training Program
DX: N39.0 Urinary tract infection, site not specified (principal); F23 Brief psychotic disorder; G81.14 Spastic hemiplegia affecting left nondominant side; F29 Unspecified psychosis not due to a substance or known physiological condition; F14.10 Cocaine abuse, uncomplicated; F17.200 Nicotine dependence, unspecified, uncomplicated; F41.9 Anxiety disorder, unspecified; G89.29 Other chronic pain; J44.9 Chronic obstructive pulmonary disease, unspecified; Z86.73 Personal history of transient ischemic attack (TIA), and cerebral infarction without residual deficits; Z20.822 Contact with and (suspected) exposure to COVID-19; F31.9 Bipolar disorder, unspecified; F25.9 Schizoaffective disorder, unspecified; F19.10 Other psychoactive substance abuse, uncomplicated; Z91.14 Patient's other noncompliance with medication regimen
CPT/HCPCS: 36415; 70450; 80053; 80307; 81001; 82140; 82607; 83735; 84439; 84443; 85025; 87426; 93005; 96374; 99406; G0480; J0515; J1630; J1650; J1885; J1956; J2060; J3486; U0003; U0005; 97116-GP; 99285-25; G0378